=== PATIENT | female | born 1940 | race Caucasian/White ===

== ENCOUNTER 2021-03-18 11:58 | Emergency (ER) | payer MEDICARE, MEDICAID, SELFPAY ==
[2021-03-18] VITALS (7 sets, daily range): BP systolic 116–151; BP diastolic 59–74; PULSE 89–95; RESP 18; TEMP 36.9; O2SAT 93–97; BMI 32.5
--- NOTE | 2021-03-18 12:11 | XRR_ITS ---
PROCEDURE INFORMATION: Exam: XR Chest Exam date and time: 03/18/2021 12:11 PM Age: 81 years old Clinical indication: Other: N/v TECHNIQUE: Imaging protocol: XR of the chest. Views: 1 view. COMPARISON: No relevant prior studies available. FINDINGS: Lungs: Unremarkable. No consolidation. Pleural spaces: Unremarkable. No pleural effusion. No pneumothorax. Heart/Mediastinum: Unremarkable. No cardiomegaly. Bones/joints: Unremarkable. XR/XR chest 1V portable [id number] IMPRESSION: No acute findings.
--- NOTE | 2021-03-18 12:15 | ECG_ITS ---
[facility] Test Date: 2021-03-18 Pat Name: Danelle Elaine Department: Room: Gender: Female Organizational Effectiveness Consultant: : 1940 Requested By: Gilma Cortes I Order Number: [id number] Leopoldo MD: Vivek Patiño M.D. Measurements Intervals [place] Rate: 92 P: 29 [place]: 182 QRS: -33 QRSD: 102 T: 100 QT: 399 QTc: 496 Interpretive Statements SINUS RHYTHM LEFT AXIS DEVIATION [QRS AXIS < -30] INCOMPLETE RIGHT BUNDLE BRANCH BLOCK [90+ ms QRS DURATION, TERMINAL R IN V1/V2, 40+ ms S IN I/aVL/V4/V5/V6] MINIMAL VOLTAGE CRITERIA FOR LVH, CONSIDER NORMAL VARIANT [MEETS CRITERIA IN ONE OF: R(aVL), S(V1), R(V5), R(V5/V6)+S(V1)] POSSIBLE ANTERIOR MYOCARDIAL INFARCTION , PROBABLY OLD [30 ms Q WAVE IN V3/V4, OR R < 0.2 mV IN V4] No previous ECG available for comparison Electronically Signed On 03-18-2021 19:46:50 CDT by Vivek Patiño M.D. [id number]
--- NOTE | 2021-03-18 12:16 | ED_ITS ---
HPI - Nausea/Vomiting/Diarrhea General: Chief complaint: Nausea/Vomiting/Diarrhea Stated complaint: N/V/D X4 DAYS Time Seen by Provider: 03/18/21 11:58 Source: patient, EMS and RN notes reviewed Mode of arrival: EMS Limitations: no limitations History of Present Illness: HPI Narrative: Patient is an 81-year-old female with a history of diabetes who presents to the emergency department with nausea and vomiting that has been going on for about 4 days. There is also associated diarrhea. She feels weak. Yesterday she noticed that her stools were turning black and it was worse, yesterday and this morning it was dark-colored. No abdominal pain. No chest pain or SOB. She has received the Moderna Vaccine and received 2 doses about 6 months ago. MD elicited complaint: nausea, vomiting and diarrhea Onset (ago): day(s) (4) Description of diarrhea: watery Associated nausea: Yes Associated abdominal pain: No Exacerbating factors: none Relieving factors: none Associated symtoms: Reports fatigue, nausea and weakness; Denies altered mental status, anxiety, bloating, change in vision, chest pain, cough, diaphoresis, decreased urine output, dizziness, dysuria, epistaxis, fecal incontinence, fevers/chills, headache(s), anorexia, malaise, myalgias, numbness, palpitations, rash, short of breath, syncope, tenesmus or tinnitus Review of Systems General: Reports: 10 or more systems reviewed and unremarkable except in HPI and below Const: Reports: fatigue; Denies: malaise or diaphoresis Eyes: Denies: change in vision ENMT: Denies: tinnitus or epistaxis Card: Denies: chest pain, palpitations or syncope GI: Reports: nausea; Denies: bloating or fecal incontinence : Denies: dysuria Neuro: Denies: headache(s) or dizziness Psych: Denies: anxiety Physical Exam Const: COMMON NORMALS: no acute distress, average body habitus, patient oriented x3, no limitations, healthy appearing, alert and well nourished EXAM LIMITATIONS: no altered mental status HENMT: COMMON NORMALS: normocephalic, atraumatic and moist oral mucous membranes HEAD & SCALP: normocephalic and atraumatic Neck/C-Spine: COMMON NORMALS: no meningeal signs and no JVD Resp: COMMON NORMALS: normal respiratory effort, No retractions, No use of accessory muscles, clear to auscultation bilaterally and percussion normal AUSCULTATION: clear to auscultation bilaterally PERCUSSION: percussion normal Cardio: COMMON NORMALS: no JVD, regular rate, regular rhythm, S1 normal heart sound present, S2 normal heart sound present, No gallops present (Cardio), No clicks present (Cardio), No murmurs present (Cardio), No rub (Cardio) and Peripheral pulses 2+ throughout RATE: regular rate RHYTHM: regular rhythm HEART SOUNDS: S1 normal heart sound present and S2 normal heart sound present PERIPHERAL PULSES: Peripheral pulses 2+ throughout GI: COMMON NORMALS: Normal to inspection, nondistended, normoactive bowel sounds present, Soft to palpation, non-tender, No hepatosplenomegaly present, no masses and no bruits PALPATION: Yes Soft to palpation and Yes No hepatosplenomegaly present Extremity: COMMON NORMALS: normal to inspection, full ROM, capillary refill normal, no calf tenderness and no pedal edema Neuro: COMMON NORMALS: patient oriented x3 SENSORIUM/ORIENTATION: Yes alert MENINGEAL SIGNS: Yes no meningeal signs Skin: COMMON NORMALS: no rashes or lesions noted, no wounds, turgor normal, no jaundice, no petechiae and no mottling GENERAL SKIN EXAM: no rashes or lesions noted and turgor normal Course Reevaluation(s): Reevaluation #1: Discussed her lab and imaging findings with her. She likely has a UTI, she was given a dose of intravenous ceftriaxone in the emergency department for this. She is also discharged with a prescription for Augmentin. She is advised to drink plenty of fluids to keep well-hydrated. She voiced understanding and is in agreement with the plan. Time: 15:45 Vital Signs: Vital signs: Vital Signs Temperature 98.4 F 03/18/21 12:00 Pulse Rate 92 03/18/21 16:38 Respiratory Rate 18 03/18/21 16:38 Blood Pressure 143/74 03/18/21 16:38 Pulse Oximetry 97 03/18/21 16:38 MDM - Nausea/Vomiting/Diarrhea MDM Narrative: Medical decision making narrative: 81-year-old female patient who presented to the emergency department with complaints of nausea vomiting and diarrhea. Evaluation in the emergency department is consistent with a urinary tract infection. She is discharged home with a prescription for Augmentin. Medical Records: Attestation: I reviewed the patient's medical records. Lab Data: Attestation: I reviewed the patient's lab results. Labs: Lab Results 03/18/21 03/18/21 03/18/21 Range/Units 12:30 12:30 12:30 WBC 6.1 (4.0-10.0) 10^3/ uL RBC 3.92 L (4.1-5.3) 10^6/u L Hgb 11.3 L (11.5-15.3) g/dL Hct 35.7 L (37.0-47.0) % MCV 91.1 (81-99) fl MCH 28.8 (28.0-34.0) pg MCHC 31.7 (30.0-36.0) g/dL RDW 12.9 (12.1-15.1) % Plt Count 337 (130-400) 10^3/c mm MPV 10.0 (7.4-10.4) fL Neut % (Auto) 66.1 % Lymph % (Auto) 19.3 % [place] % (Auto) 11.8 % Eos % (Auto) 1.8 % Baso % (Auto) 0.7 % Neut # (Auto) 4.03 (1.8-7.7) 10^3/u L Lymph # (Auto) 1.2 (0.8-4.8) 10^3/u L [place] # (Auto) 0.7 (0.2-0.9) 10^3/u L Eos # (Auto) 0.1 (0.0-0.8) 10^3/u L Baso # (Auto) 0.0 (0.0-0.1) 10^3/u L Nucleated RBC % (a uto) 0 % Nucleated RBCs # 0.0 /100WBC Sodium 138 (136-145) mmol/L Potassium 4.2 (3.5-5.1) mmol/L Chloride 105 (98-107) mmol/L Carbon Dioxide 23 (22-29) mmol/L Anion Gap 14.2 (5-19) BUN 29 H (8-23) mg/dL Creatinine 1.2 H (0.5-0.9) mg/dL GFR Calculation Not Reportable Glucose 221 H (65-115) mg/dL Calculated Osmolal ity 299 H (285-295) mOsm/k g Calcium 8.3 L (8.5-10.5) mg/dL Total Bilirubin 0.2 (0.15-1.2) mg/dL AST 17 (0-32) U/L ALT 14 (0-33) U/L Alkaline Phosphata se 30 L (35-105) IU/L Troponin T Gen 5 n g/L 21 H (0-10) ng/L C-Reactive Protein 21.2 H (0.0-4.9) mg/L Total Protein 6.2 L (6.6-8.7) g/dL Albumin 3.8 (3.5-5.2) g/dL Globulin 2.4 (1.3-4.6) g/dL Lipase 11 L (13-60) U/L Urine Color (Yellow) Urine Appearance (CLEAR) Urine pH (5-7) Ur Specific Gravit y (1.005-1.030) Urine Protein (Negative) Urine Glucose (UA) (Normal) Urine Ketones (Negative) Urine Blood (Negative) Urine Nitrate (Negative) Urine Bilirubin (Negative) Urine Urobilinogen (Negative) mg/dL Ur Leukocyte Patsy ase (Negative) Urine RBC (0-2) /hpf Urine WBC (0-5) /hpf Ur Squamous Epith Cells (0-5) /hpf Amorphous Sediment Urine Bacteria (NONE) /hpf Urine Mucus /hpf 03/18/ Range/Units 14:01 WBC (4.0-10.0) 10^3/ uL RBC (4.1-5.3) 10^6/u L Hgb (11.5-15.3) g/dL Hct (37.0-47.0) % MCV (81-99) fl MCH (28.0-34.0) pg MCHC (30.0-36.0) g/dL RDW (12.1-15.1) % Plt Count (130-400) 10^3/c mm MPV (7.4-10.4) fL Neut % (Auto) % Lymph % (Auto) % [place] % (Auto) % Eos % (Auto) % Baso % (Auto) % Neut # (Auto) (1.8-7.7) 10^3/u L Lymph # (Auto) (0.8-4.8) 10^3/u L [place] # (Auto) (0.2-0.9) 10^3/u L Eos # (Auto) (0.0-0.8) 10^3/u L Baso # (Auto) (0.0-0.1) 10^3/u L Nucleated RBC % (a uto) % Nucleated RBCs # /100WBC Sodium (136-145) mmol/L Potassium (3.5-5.1) mmol/L Chloride (98-107) mmol/L Carbon Dioxide (22-29) mmol/L Anion Gap (5-19) BUN (8-23) mg/dL Creatinine (0.5-0.9) mg/dL GFR Calculation Glucose (65-115) mg/dL Calculated Osmolal ity (285-295) mOsm/k g Calcium (8.5-10.5) mg/dL Total Bilirubin (0.15-1.2) mg/dL AST (0-32) U/L ALT (0-33) U/L Alkaline Phosphata se (35-105) IU/L Troponin T Gen 5 n g/L (0-10) ng/L C-Reactive Protein (0.0-4.9) mg/L Total Protein (6.6-8.7) g/dL Albumin (3.5-5.2) g/dL Globulin (1.3-4.6) g/dL Lipase (13-60) U/L Urine Color Dark yellow (Yellow) Urine Appearance Cloudy (CLEAR) Urine pH 5 (5-7) Ur Specific Gravit y 1.030 (1.005-1.030) Urine Protein 1+ H (Negative) Urine Glucose (UA) Trace H (Normal) Urine Ketones 1+ H (Negative) Urine Blood Neg (Negative) Urine Nitrate Negative (Negative) Urine Bilirubin 1+ H (Negative) Urine Urobilinogen 1 H (Negative) mg/dL Ur Leukocyte Patsy ase 2+ H (Negative) Urine RBC None (0-2) /hpf Urine WBC 15-25 H (0-5) /hpf Ur Squamous Epith Cells 15-25 H (0-5) /hpf Amorphous Sediment Not Reportable Urine Bacteria 1+ H (NONE) /hpf Urine Mucus 1+ /hpf Imaging Data^: CXR: Attestation: I personally reviewed and interpreted this imaging study as follows: Radiologist's impression: Ady [address] [id number] ReportSigned Patient: Lina Elaine #: [id number]: 1940Acct#:[id number]/Sex: 81 / FADM Date: 03/18/21Loc: ERRoom/Bed:Attending Dr: Ordering Provider/Ordering MD: Gilma Cortes MD, [facility] [place] Date of Service: 03/18/21 Procedure(s): XR chest 1V portable [id number] Accession Number(s): [id number] Report Number: [id number] PROCEDURE INFORMATION: Exam: XR Chest Exam date and time: 03/18/2021 12:11 PM Age: 81 years old Clinical indication: Other: N/v TECHNIQUE: Imaging protocol: XR of the chest. Views: 1 view. COMPARISON: No relevant prior studies available. FINDINGS: Lungs: Unremarkable. No consolidation. Pleural spaces: Unremarkable. No pleural effusion. No pneumothorax. Heart/Mediastinum: Unremarkable. No cardiomegaly. Bones/joints: Unremarkable. XR/XR chest 1V portable [id number] IMPRESSION: No acute findings. Dictated By:Talha Mehta By:Talha Mehta Date/Time:03/18/21 1356DD/ 1355 EKG Data^: EKG 1: Attestation: I personally reviewed and interpreted this EKG as follows: EKG interpretation date: 03/18/21 EKG interpretation time: 12:26 Prior EKG tracings: not available for review Interpretation: Sinus rhythm. Heart rate 92 bpm. Incomplete right bundle branch block. No ST changes. Discharge Plan Discharge Patient Disposition: Home Clinical Impression: Gastroenteritis UTI (urinary tract infection) Qualifiers: Urinary tract infection type: acute cystitis Hematuria presence: without hematuria Qualified Code(s): N30.00 - Acute cystitis without hematuria Condition: Stable Prescriptions: New Augmentin 500-125 mg tablet 1 tab PO BID Qty: 10 RF: 0 Continued atorvastatin 40 mg tablet 40 mg PO DAILY RF: 0 Lantus U-100 Insulin 100 unit/mL solution 75 unit SUBCUT BID RF: 0 lisinopril 20 mg tablet 20 mg PO DAILY RF: 0 glimepiride 4 mg tablet 4 mg PO DAILY RF: 0 gabapentin 100 mg capsule 100 mg PO BID RF: 0 fenofibrate nanocrystallized 145 mg tablet 14 mg PO DAILY RF: 0 Trulicity 0.75 mg/0.5 mL pen injector 0.75 mg SUBCUT Q7D RF: 0 Discharge Orders: Discharge ED (Routine); Ordered 03/18/21 Ordered By: Gilma Cortes Referrals: Toan Espinoza DO [Primary Care Provider] - 1-3 days Discharge Diet: Usual diet Discharge Activity: Increase activity as tolerated Patient Instructions: Urinary Tract Infection in Women (ED), Gastroenteritis (ED) Activity Restrictions/Additional Instructions: Return for any new or worsening symptoms. Follow-up with your primary care provider within 3 days. Take antibiotic as prescribed. Drink plenty of fluids to keep well-hydrated. Coding Level of Care Code ED Utility Aide for Chg Fwd Exam Comprehensive
[2021-03-18 12:59] LABS: Basophils % 0.7 %; Eosinophils # 0.1 10^3/uL (0.0-0.8); Eosinophils % 1.8 %; Hematocrit 35.7 % (37.0-47.0); Hemoglobin 11.3 g/dL (11.5-15.3); Lymphocytes # 1.2 10^3/uL (0.8-4.8); Lymphocytes % 19.3 %; Mean Corpuscular HGB Conc 31.7 g/dL (30.0-36.0); Mean Corpuscular Hemoglobin 28.8 pg (28.0-34.0); Mean Corpuscular Volume 91.1 fl (81-99); Monocytes # 0.7 10^3/uL (0.2-0.9); Monocytes % 11.8 %; Neutrophils # 4.03 10^3/uL (1.8-7.7); Neutrophils % 66.1 %; Nucleated Red Blood Cells % 0 %; Platelet Count 337 10^3/cmm (130-400); Red Blood Count 3.92 10^6/uL (4.1-5.3); Red Cell Distribution Width 12.9 % (12.1-15.1); White Blood Count 6.1 10^3/uL (4.0-10.0)
[2021-03-18 13:17] LABS: Troponin T (5th) Once 21 ng/L (0-10)
[2021-03-18 13:19] LABS: Alanine Aminotransferase 14 U/L (0-33); Albumin Level 3.8 g/dL (3.5-5.2); Alkaline Phosphatase 30 IU/L (35-105); Anion Gap 14.2 (5-19); Aspartate Amino Transferase 17 U/L (0-32); Blood Urea Nitrogen 29 mg/dL (8-23); C Reactive Protein 21.2 mg/L (0.0-4.9); Calcium 8.3 mg/dL (8.5-10.5); Carbon Dioxide 23 mmol/L (22-29); Chloride 105 mmol/L (98-107); Globulin 2.4 g/dL (1.3-4.6); Glucose 221 mg/dL (65-115); Lipase 11 U/L (13-60); Osmolality Calculated 299 mOsm/kg (285-295); Potassium 4.2 mmol/L (3.5-5.1); Sodium 138 mmol/L (136-145); Total Bilirubin 0.2 mg/dL (0.15-1.2); Total Protein 6.2 g/dL (6.6-8.7)
[2021-03-18] MEDS: ondansetron 2 mg/ML SDV 2 mL 4 MG IVP (13:40)
[2021-03-18 14:55] LABS: Urine Appearance Cloudy (CLEAR); Urine Color Dark Yellow (Yellow)
[2021-03-18 14:56] LABS: Add Urine Microscopic? YES; Bilirubin Urine 1+ (Negative); Blood Urine Neg (Negative); Glucose Urine UA Trace (Normal); Ketones Urine 1+ (Negative); Leukocyte Esterase Urine 2+ (Negative); Nitrate Urine Negative (Negative); Protein Urine 1+ (Negative); Urobilinogen Urine 1 mg/dL (Negative); pH Urine 5 (5-7)
[2021-03-18 14:58] LABS: Add Urine Culture? No; Bacteria Urine 1+ /hpf; Mucus Urine 1+ /hpf; Squamous Epithelial Cell Urine 15-25 /hpf (0-5); WBC Urine 15-25 /hpf (0-5)
[2021-03-18] MEDS: cefTRIAXone 1,000 MG in sodium chloride 0.9% (plus) 50 ML 100 MG IV (15:31)
[2021-03-18] MEDS: sodium chloride 0.9% 1,000 ML 999 ML IV (15:32)
== END 2021-03-18 16:38 | disposition home or self-care (01) ==
PROVIDERS: Emergency Provider Family Medicine; PCP Electrodiagnostic Medicine
DX: K52.9 Noninfective gastroenteritis and colitis, unspecified (principal); N30.00 Acute cystitis without hematuria
CPT/HCPCS: 71045; 80053; 81001; 83690; 84484; 85025; 86140; 93005; 96365; 96375; 99284; J0696; J2405; J7030

== ENCOUNTER 2022-09-10 11:04 | Emergency (ER) | payer MEDICARE, MEDICAID, SELFPAY ==
[2022-09-10 11:13] VITALS: BP 116/93; PULSE 74; RESP 19; TEMP 35.1; O2SAT 98
--- NOTE | 2022-09-10 11:19 | ECG_ITS ---
[facility] Test Date: 2022-09-10 Pat Name: Danelle Elaine Department: Room: Gender: Female Patient Care Director: : 1940 Requested By: Heather Meyer Order Number: [id number] Leopoldo MD: Vivek Patiño M.D. Measurements Intervals [place] Rate: 65 P: 28 NC: 189 QRS: -15 QRSD: 93 T: 32 QT: 412 QTc: 431 Interpretive Statements SINUS RHYTHM NONSPECIFIC T-WAVE ABNORMALITY Compared to ECG 03/18/2021 12:26:31 T-wave abnormality now present Left-axis deviation no longer present Incomplete right bundle-branch block no longer present Myocardial infarct finding no longer present Electronically Signed On 09-10-2022 17:35:03 ELEVATOR EXAMINER AND ADJUSTER by Vivek Patiño M.D. [id number]
--- NOTE | 2022-09-10 11:21 | ED_ITS ---
HPI - Altered Mental Status General: Chief Complaint: Altered Mental Status Stated Complaint: LOW BLOOD SUGAR Time Seen by Provider: 09/10/22 11:08 History of Present Illness: This 32-year-old female with a history of diabetes was brought in by EMS for evaluation of altered mental status. Patient has an appointment to see her primary care provider this morning and when sister went over to pick her up, she discovered that patient was out of it . She could hardly recognize her sister and was disoriented. EMS was called. Patient's initial blood sugar was 45. After receiving 150 mL of D10, blood sugar improved to 131. She was found to be cold with a temporal temperature of 95.1. Patient reports feeling cold. At the time of my initial evaluation, patient could not state who the president was, knew that this is August and guessed that she was in the hospital. Sister notes that the last time patient was in her usual state of health was yesterday. They also reported that patient has had about 3 episodes of hypoglycemia over the last 1 week. Patient is on Lantus, Trulicity and glimepiride for her diabetes. Associated symptoms: Deny depression Review of Systems Const: Reports: chills and body aches (Generalized and chronic) Eyes: Denies: change in vision or eye discharge ENMT: Denies: throat pain, dental pain or nasal discharge Card: Denies: chest pain or lightheadedness : Denies: dysuria Musc: Denies: neck pain or back pain Neuro: Denies: headache(s) or weakness in extremities Psych: Denies: depression Gurvinder/Lymph: Denies: easy bruising All/Imm: Denies: urticaria, tongue swelling or facial swelling Physical Exam Narrative: Awake but appears weak. Const: OTHER: Cold to touch. Chest: COMMONS NORMALS: normal inspection of the chest Resp: COMMON NORMALS: normal respiratory effort, No retractions, No use of accessory muscles, clear to auscultation bilaterally and percussion normal AUSCULTATION: clear to auscultation bilaterally PERCUSSION: percussion normal Cardio: COMMON NORMALS: regular rate, regular rhythm, S1 normal heart sound present, S2 normal heart sound present and No murmurs present (Cardio) RATE: regular rate RHYTHM: regular rhythm HEART SOUNDS: S1 normal heart sound present and S2 normal heart sound present GI: COMMON NORMALS: Normal to inspection, nondistended, normoactive bowel sounds present, Soft to palpation, non-tender and No hepatosplenomegaly present PALPATION: Yes Soft to palpation and Yes No hepatosplenomegaly present Extremity: OTHER: No pitting pedal edema. Neuro: OTHER: Alert. No focal neurologic deficit. Psych: COMMON NORMALS: cooperative and normal affect Course Vital Signs: Vital signs: Vital Signs Temperature 95.1 F L 09/10/22 11:13 Pulse Rate 74 09/10/22 11:13 Respiratory Rate 19 H 09/10/22 11:13 Blood Pressure 130/71 09/10/22 13:15 Pulse Oximetry 99 09/10/22 13:15 Oxygen Delivery Me thod 09/10/22 12:45 MDM - Altered Mental Status Medical Decision Making Medical decision making: History as above. During her stay in the ER, patient was back to her baseline with a stable blood sugar. On further questioning, patient's sister, who found patient at home, stated that patient was just lying in bed and was not covered. I believe that she got hypothermic because she did not cover herself which led to hypothermia. The hypoglycemia is due to the fact that she uses 3 medications (Lantus, Trulicity and glimepiride) which have the potential of dropping her blood sugar. She was advised not to skip meals or drastically reduce the amount of food she eats while taking those 3 medications. Most importantly, she should measure her blood pressure at least twice a day and keep a log of the readings. Her primary care physician will review these readings and adjust her medications acco rdingly. Patient verbalized understanding and agrees with the plan. At this time, there is no indication to admit her. She was discharged home. Reasons to return were discussed. Lab Data 09/10/22 11:50 09/10/22 11:50 Radiology Impressions Chest X-Ray 09/10/22 11:29 IMPRESSION: 1. No acute process identified. 2. Widening of the mediastinum that may be due to some rotation of the chest and portable technique. Head CT 09/10/22 11:29 IMPRESSION: 1. No evidence of intracranial hemorrhage or mass effect. 2. Moderate small vessel changes. Moderate parenchymal volume loss. 3. No acute intracranial findings. Laboratory Results WBC 5.0 10^3/uL (4.0-10.0) 09/10/22 11:50 RBC 4.36 10^6/uL (4.1-5.3) 09/10/22 11:50 Hgb 12.1 g/dL (11.5-15.3) 09/10/22 11:50 Hct 38.3 % (37.0-47.0) 09/10/22 11:50 MCV 87.8 fl (81-99) 09/10/22 11:50 MCH 27.8 pg (28.0-34.0) L 09/10/22 11:50 MCHC 31.6 g/dL (30.0-36.0) 09/10/22 11:50 RDW 12.4 % (12.1-15.1) 09/10/22 11:50 Plt Count 376 10^3/cmm (130-400) 09/10/22 11:50 MPV 9.9 fL (7.4-10.4) 09/10/22 11:50 Neut % (Auto) 65.8 % 09/10/22 11:50 Lymph % (Auto) 25.1 % 09/10/22 11:50 [place] % (Auto) 7.5 % 09/10/22 11:50 Eos % (Auto) 1.0 % 09/10/22 11:50 Baso % (Auto) 0.4 % 09/10/22 11:50 Neut # (Auto) 3.26 10^3/uL (1.8-7.7) 09/10/22 11:50 Lymph # (Auto) 1.2 10^3/uL (0.8-4.8) 09/10/22 11:50 [place] # (Auto) 0.4 10^3/uL (0.2-0.9) 09/10/22 11:50 Eos # (Auto) 0.1 10^3/uL (0.0-0.8) 09/10/22 11:50 Baso # (Auto) 0.0 10^3/uL (0.0-0.1) 09/10/22 11:50 Nucleated RBC % (auto) 0 % 09/10/22 11:50 Nucleated RBCs # 0.0 /100WBC 09/10/22 11:50 Sodium 137 mmol/L (136-145) 09/10/22 11:50 Potassium 4.6 mmol/L (3.5-5.1) 09/10/22 11:50 Chloride 101 mmol/L (98-107) 09/10/22 11:50 Carbon Dioxide 23 mmol/L (22-29) 09/10/22 11:50 Anion Gap 17.6 (5-19) 09/10/22 11:50 BUN 25 mg/dL (8-23) H 09/10/22 11:50 Creatinine 1.0 mg/dL (0.5-0.9) H 09/10/22 11:50 GFR Calculation Not Reportable 09/10/22 11:50 Glucose 179 mg/dL (65-115) H 09/10/22 11:50 POC Glucose 122 mg/dL (70-110) H 09/10/22 14:58 Calculated Osmolality 293 mOsm/kg (285-295) 09/10/22 11:50 Calcium 9.1 mg/dL (8.5-10.5) 09/10/22 11:50 Total Bilirubin 0.2 mg/dL (0.15-1.2) 09/10/22 11:50 AST 25 U/L (0-32) 09/10/22 11:50 ALT 17 U/L (0-33) 09/10/22 11:50 Alkaline Phosphatase 35 U/L (35-105) 09/10/22 11:50 Total Protein 7.2 g/dL (6.6-8.7) 09/10/22 11:50 Albumin 3.8 g/dL (3.5-5.2) 09/10/22 11:50 Globulin 3.4 g/dL (1.3-4.6) 09/10/22 11:50 Lipase 18 U/L (13-60) 09/10/22 11:50 Urine Color Yellow (Yellow) 09/10/22 13:26 Urine Appearance Clear (CLEAR) 09/10/22 13:26 Urine pH 6 (5-7) 09/10/22 13:26 Ur Specific [place] 1.020 (1.005-1.030) 09/10/22 13:26 Urine Protein Neg (Negative) 09/10/22 13:26 Urine Glucose (UA) Norm (Normal) 09/10/22 13:26 Urine Ketones Negative (Negative) 09/10/22 13:26 Urine Blood Neg (Negative) 09/10/22 13:26 Urine Nitrate Negative (Negative) 09/10/22 13:26 Urine Bilirubin Neg (Negative) 09/10/22 13:26 Urine Urobilinogen Norm mg/dL (Negative) 09/10/22 13:26 Ur Leukocyte Esterase Negative (Negative) 09/10/22 13:26 Discharge Plan Discharge Patient Disposition: Home Clinical Impression: Hypoglycemia, Hypothermia Condition: Stable Prescriptions: No Action atorvastatin 40 mg tablet 40 mg PO DAILY insulin glargine [Lantus U-100 Insulin] 100 unit/mL solution 72 unit SUBCUT BID lisinopril 20 mg tablet 20 mg PO DAILY glimepiride 4 mg tablet 4 mg PO DAILY fenofibrate nanocrystallized 145 mg tablet 145 mg PO DAILY Trulicity 0.75 mg/0.5 mL pen injector 0.75 mg SUBCUT Q7D Rx Instructions: On Friday Discharge Orders: Discharge ED (Routine); Ordered 09/10/22 Ordered By: Heather Patel Referrals: Toan Espinoza DO [Primary Care Provider] - Discharge Diet: Usual diet Discharge Activity: Resume usual activity Patient Instructions: Opioid Safety, Pain Management Activity Restrictions/Additional Instructions: * Check your blood sugar at least twice a day and keep a log of the readings. Discussed these readings with your primary care physician who will adjust her medications accordingly. * Do not skip meals especially after taking your blood sugar medications. * Be sure to carry sugar cubes or candy with you. Take them if you develop any signs of low blood sugar. * Follow-up with your primary care physician within a week for reevaluation. * Return with new or worsening symptoms. Coding Level of Care Code ED Slate Mixer for Aliyah Peter
--- NOTE | 2022-09-10 11:29 | XR_ITS ---
WS: [id number] Exam: XR chest 1V portable [id number] Date/Time of Exam: 09/10/2022 11:33 AM Reason For Exam: hypoglycemia, altered mental status Comparison 03/18/2021. The lungs are fully expanded. No consolidating infiltrates. Plaque atelectasis in the left base. Hear t size top limits normal. There is accentuation of the mediastinum on the right that may be due to ro tation and portable technique. Bony structures are intact. XR/XR chest 1V portable [id number] IMPRESSION: 1. No acute process identified. 2. Widening of the mediastinum that may be due to some rotation of the chest an d portable technique.
--- NOTE | 2022-09-10 11:29 | CT_ITS ---
WS: [id number] CT HEAD TECHNIQUE: Noncontrast CT of the head obtained from the skullbase to the vertex. CLINICAL INFORMATION: Altered mental status, hypoglycemia COMPARISON: None. DLP: 1026.[address] scans at [facility] use at least one of these dose optimization techniques: automated e xposure control; mA and/or kV adjustment per patient size (includes targeted exams where dose is matc hed to clinical indication); or iterative reconstruction. FINDINGS: Some images degraded by patient motion. No evidence of intracranial hemorrhage or mass effect. Ventricular system and basal cisterns are beltre nt. Moderate small vessel changes with moderate parenchymal volume loss. 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 Mild encephalomalacia RIGHT anterior temporal lobe. Vascular calcification. No extra -axial fluid collections. No evidence of mass or mass effect. Paranasal sinuses and mastoid air cells are well aerated. .Normal visualized soft tissues. CT/CT head wo con* [id number] IMPRESSION: 1. No evidence of intracranial hemorrhage or mass effect. 2. Moderate small vessel changes. Moderate parenchymal volume loss. 3. No acute intracranial findings.
[2022-09-10] MEDS: sodium chloride 0.9% 1,000 ML 999 ML IV (11:51)
[2022-09-10 11:58] LABS: Basophils % 0.4 %; Eosinophils # 0.1 10^3/uL (0.0-0.8); Hematocrit 38.3 % (37.0-47.0); Hemoglobin 12.1 g/dL (11.5-15.3); Lymphocytes # 1.2 10^3/uL (0.8-4.8); Lymphocytes % 25.1 %; Mean Corpuscular HGB Conc 31.6 g/dL (30.0-36.0); Mean Corpuscular Hemoglobin 27.8 pg (28.0-34.0); Mean Corpuscular Volume 87.8 fl (81-99); Mean Platelet Volume 9.9 fL (7.4-10.4); Monocytes # 0.4 10^3/uL (0.2-0.9); Monocytes % 7.5 %; Neutrophils # 3.26 10^3/uL (1.8-7.7); Neutrophils % 65.8 %; Nucleated Red Blood Cells % 0 %; Platelet Count 376 10^3/cmm (130-400); Red Blood Count 4.36 10^6/uL (4.1-5.3); Red Cell Distribution Width 12.4 % (12.1-15.1)
[2022-09-10 12:05] VITALS: O2SAT 98
[2022-09-10 12:15] VITALS: BP 114/87
[2022-09-10 12:20] LABS: Albumin Level 3.8 g/dL (3.5-5.2); Alkaline Phosphatase 35 U/L (35-105); Blood Urea Nitrogen 25 mg/dL (8-23); Calcium 9.1 mg/dL (8.5-10.5); Carbon Dioxide 23 mmol/L (22-29); Chloride 101 mmol/L (98-107); Globulin 3.4 g/dL (1.3-4.6); Glucose 179 mg/dL (65-115); Lipase 18 U/L (13-60); Osmolality Calculated 293 mOsm/kg (285-295); Sodium 137 mmol/L (136-145); Total Bilirubin 0.2 mg/dL (0.15-1.2); Total Protein 7.2 g/dL (6.6-8.7)
[2022-09-10 12:21] LABS: Alanine Aminotransferase 17 U/L (0-33); Anion Gap 17.6 (5-19); Aspartate Amino Transferase 25 U/L (0-32); Potassium 4.6 mmol/L (3.5-5.1)
[2022-09-10 12:45] VITALS: BP 133/52; O2SAT 96
[2022-09-10 13:00] VITALS: BP 121/57; O2SAT 100
[2022-09-10 13:15] VITALS: BP 130/71; O2SAT 99
[2022-09-10 13:40] LABS: Add Urine Microscopic? NO; Charge for UA Resulting for Rev
[2022-09-10 14:07] LABS: Bilirubin Urine Neg (Negative); Blood Urine Neg (Negative); Glucose Urine UA Norm (Normal); Ketones Urine Negative (Negative); Leukocyte Esterase Urine Negative (Negative); Nitrate Urine Negative (Negative); Protein Urine Neg (Negative); Urine Appearance Clear (CLEAR); Urine Color Yellow (Yellow); Urobilinogen Urine Norm (Negative); pH Urine 6 (5-7)
[2022-09-10 15:04] LABS: Glucose Point of Care 122 mg/dL (70-110)
== END 2022-09-10 16:40 | disposition home or self-care (01) ==
PROVIDERS: Emergency Provider Family Medicine; PCP Electrodiagnostic Medicine
DX: T68.XXXA Hypothermia, initial encounter (principal); X31.XXXA Exposure to excessive natural cold, initial encounter; E11.649 Type 2 diabetes mellitus with hypoglycemia without coma; Z79.85 Long-term (current) use of injectable non-insulin antidiabetic drugs; Z79.84 Long term (current) use of oral hypoglycemic drugs; Z79.4 Long term (current) use of insulin
CPT/HCPCS: 36416; 70450; 71045; 80053; 81003; 82962; 83690; 85025; 93005; 96360; 99285; J7030

== ENCOUNTER 2022-12-12 14:26 | Emergency (ER) | payer MEDICARE, MEDICAID, SELFPAY ==
[2022-12-12 14:35] VITALS: BP 164/72; PULSE 83; RESP 18; TEMP 36.7; O2SAT 95
--- NOTE | 2022-12-12 14:42 | W.ED.FALL ---
HPI - Fall General: Chief Complaint: Fall Stated Complaint: fall, rib pain Time Seen by Provider: 12/12/22 14:36 History of Present Illness: Ms. Elaine is an 82-year-old lady with history of frequent falls presenting to the emergency department for follow-up with continued pain. She reports 2 nights ago going to the bathroom and losing her balance falling primarily on her back left side. She denies head strike or loss of consciousness. She has had left-sided pain and left posterior hip pain since that time. Course has worsened. Intensity is moderate though at times becomes severe. No other specific changes in health, exacerbating, or alleviating factors identified. Onset (ago): day(s) Fall from: standing Loss of consciousness: None Symptoms prior to fall: none Severity: moderate Review of Systems General: Reports: 10 or more systems reviewed and unremarkable except in HPI and below Physical Exam Const: COMMON NORMALS: alert GENERAL APPEARANCE: cooperative and well developed HENMT: COMMON NORMALS: normocephalic and atraumatic HEAD & SCALP: normocephalic and atraumatic Eye: COMMON NORMALS: conjunctivae normal CONJUNCTIVA: Yes conjunctivae normal SCLERA: sclerae normal Neck/C-Spine: COMMON NORMALS: supple GENERAL: Yes trachea midline Resp: COMMON NORMALS: normal respiratory effort EFFORT & INSPECTION: Yes able to speak in complete sentences Cardio: COMMON NORMALS: regular rate and regular rhythm RATE: regular rate RHYTHM: regular rhythm GI: COMMON NORMALS: Soft to palpation PALPATION: Yes Soft to palpation and No Tenderness to palpation present (GI) Extremity: GENERAL: Yes normal exam except as noted and No edema Neuro: COMMON NORMALS: moves all extremities SENSORIUM/ORIENTATION: Yes alert and No Orientation impaired Psych: COMMON NORMALS: mental status grossly normal and Normal thought process present THOUGHT PROCESS: Normal thought process present Course Vital Signs: Vital signs: Vital Signs Temperature 98.1 F 12/12/22 14:35 Pulse Rate 96 12/12/22 16:43 Respiratory Rate 18 12/12/22 14:35 Blood Pressure 179/85 12/12/22 16:43 Pulse Oximetry 96 12/12/22 16:43 Oxygen Delivery Me thod Room Air 12/12/22 16:43 MDM - Fall Medical Decision Making 82-year-old lady presenting due to continued pain after fall. She does have left hip and left rib area pain on palpation. Head to toe exam performed. She is nontoxic. Labs with no leukocytosis, near baseline normocytic anemia, normal platelet count. Metabolic panel similar to prior. No UTI given absence of symptoms and squamous epithelial contamination. CT demonstrates no acute findings, incidental finding discussed as appropriate. Patient feels improved with Toradol and able to ambulate. Most likely cause of symptoms is soft tissue injury related to fall. The results of ED evaluation were discussed with the patient including prescriptions and/or symptomatic cares (if applicable) including appropriate and responsible use, followup plan, and return precautions. The patient verbalized understanding and felt safe for discharge. Medical Records I reviewed the patient's medical records. Lab Data I reviewed the patient's lab results. 12/12/22 15:04 12/12/22 15:04 Radiology Impressions Chest/Abdomen/Pelvis CT 12/12/22 14:52 IMPRESSION: No acute traumatic intrathoracic findings. IMPRESSION: No acute traumatic intra-abdominal findings. COMMENTS: Consistent with the [employer]'s Incidental Findings Committee white paper (J Am Paras Radiol 2018): Any incidental renal lesion less than 1 cm or classified as too small to characterize, or any incidental cystic renal lesion characterized as simple-appearing, is likely benign. No follow-up imaging is recommended for these lesions per consensus recommendations based on imaging criteria. Laboratory Results WBC 6.4 10^3/uL (4.0-10.0) 12/12/22 15:04 RBC 3.88 10^6/uL (4.1-5.3) L 12/12/22 15:04 Hgb 11.2 g/dL (11.5-15.3) L 12/12/22 15:04 Hct 34.4 % (37.0-47.0) L 12/12/22 15:04 MCV 88.7 fl (81-99) 12/12/22 15:04 MCH 28.9 pg (28.0-34.0) 12/12/22 15:04 MCHC 32.6 g/dL (30.0-36.0) 12/12/22 15:04 RDW 13.1 % (12.1-15.1) 12/12/22 15:04 Plt Count 352 10^3/cmm (130-400) 12/12/22 15:04 MPV 9.9 fL (7.4-10.4) 12/12/22 15:04 Neut % (Auto) 66.0 % 12/12/22 15:04 Lymph % (Auto) 21.3 % 12/12/22 15:04 Hunt % (Auto) 10.2 % 12/12/22 15:04 Eos % (Auto) 1.7 % 12/12/22 15:04 Baso % (Auto) 0.5 % 12/12/22 15:04 Neut # (Auto) 4.21 10^3/uL (1.8-7.7) 12/12/22 15:04 Lymph # (Auto) 1.4 10^3/uL (0.8-4.8) 12/12/22 15:04 Hunt # (Auto) 0.7 10^3/uL (0.2-0.9) 12/12/22 15:04 Eos # (Auto) 0.1 10^3/uL (0.0-0.8) 12/12/22 15:04 Baso # (Auto) 0.0 10^3/uL (0.0-0.1) 12/12/22 15:04 Nucleated RBC % (auto) 0 % 12/12/22 15:04 Nucleated RBCs # 0.0 /100WBC 12/12/22 15:04 Sodium 136 mmol/L (136-145) 12/12/22 15:04 Potassium 4.4 mmol/L (3.5-5.1) 12/12/22 15:04 Chloride 101 mmol/L (98-107) 12/12/22 15:04 Carbon Dioxide 24 mmol/L (22-29) 12/12/22 15:04 Anion Gap 15.4 (5-19) 12/12/22 15:04 BUN 28 mg/dL (8-23) H 12/12/22 15:04 Creatinine 0.9 mg/dL (0.5-0.9) 12/12/22 15:04 GFR Calculation Not Reportable 12/12/22 15:04 Glucose 227 mg/dL (65-115) H 12/12/22 15:04 Calculated Osmolality 295 mOsm/kg (285-295) 12/12/22 15:04 Calcium 9.8 mg/dL (8.5-10.5) 12/12/22 15:04 Total Bilirubin 0.3 mg/dL (0.15-1.2) 12/12/22 15:04 AST 21 U/L (0-32) 12/12/22 15:04 ALT 18 U/L (0-33) 12/12/22 15:04 Alkaline Phosphatase 29 U/L (35-105) L 12/12/22 15:04 Total Protein 7.2 g/dL (6.6-8.7) 12/12/22 15:04 Albumin 4.3 g/dL (3.5-5.2) 12/12/22 15:04 Globulin 2.9 g/dL (1.3-4.6) 12/12/22 15:04 Urine Color Yellow (Yellow) 12/12/22 16:34 Urine Appearance Sl hazy (CLEAR) A 12/12/22 16:34 Urine pH 6 (5-7) 12/12/22 16:34 Ur Specific [place] 1.020 (1.005-1.030) 12/12/22 16:34 Urine Protein Neg (Negative) 12/12/22 16:34 Urine Glucose (UA) 1+ (Normal) H 12/12/22 16:34 Urine Ketones Negative (Negative) 12/12/22 16:34 Urine Blood Neg (Negative) 12/12/22 16:34 Urine Nitrate Negative (Negative) 12/12/22 16:34 Urine Bilirubin Neg (Negative) 12/12/22 16:34 Urine Urobilinogen Norm mg/dL (Negative) 12/12/22 16:34 Ur Leukocyte Esterase 1+ (Negative) H 12/12/22 16:34 Urine RBC 0-4 /hpf (0-2) H 12/12/22 16:34 Urine WBC 25-40 /hpf (0-5) H 12/12/22 16:34 Ur Squamous Epith Cells 40-55 /hpf (0-5) H 12/12/22 16:34 Amorphous Sediment Not Reportable 12/12/22 16:34 Urine Bacteria Trace /hpf (NONE) 12/12/22 16:34 Discharge Plan Discharge Patient Disposition: Home Clinical Impression: Fall, Multiple contusions, Anemia, mild, Contusion of ribs, Adrenal nodule, Gallstones Condition: Stable Prescriptions: No Action atorvastatin 40 mg tablet 40 mg PO DAILY insulin glargine [Lantus U-100 Insulin] 100 unit/mL solution 72 unit SUBCUT BID lisinopril 20 mg tablet 20 mg PO DAILY glimepiride 4 mg tablet 4 mg PO DAILY fenofibrate nanocrystallized 145 mg tablet 145 mg PO DAILY Trulicity 0.75 mg/0.5 mL pen injector 0.75 mg SUBCUT Q7D Rx Instructions: On Friday Discharge Orders: Discharge ED (Routine); Ordered 12/12/22 Ordered By: Curly Fuentes Referrals: Toan Espinoza, [Primary Care Provider] - Discharge Diet: Usual diet Discharge Activity: Increase activity as tolerated Patient Instructions: Fall Prevention for Older Adults (ED), Contusion in Adults (ED) Activity Restrictions/Additional Instructions: Thank you for visiting the emergency department. You were seen and evaluated for fall with pain. The most likely cause of your symptoms is soft tissue and bony bruising. No acute internal injuries or fractures (broken bones) were identified. I would expect improvement in the next few days. You may use [id number] medications such as acetaminophen and ibuprofen for pain however please do not exceed the daily recommended dosage as listed on the packaging and please keep in mind that many namebrand medications contain the same active ingredients. Please avoid these medications if previously instructed to do so by another physician due to other underlying medical condition. If using NSAIDs please also take a [id number] proton pump inhibitor or H2 ben for gastric protection. Please follow-up with your primary care provider. Return to the emergency department for uncontrolled symptoms or anything else that you are concerned about and feel needs emergency room evaluation. Coding Level of Care Code ED Solids Control Technician for Aliyah Peter
--- NOTE | 2022-12-12 14:52 | CTR_ITS ---
PROCEDURE INFORMATION: Exam: CT Chest With Contrast; Diagnostic Exam date and time: 12/12/2022 3:51 PM Age: 82 years old Clinical indication: Injury or trauma; Fall; Luq; Blunt trauma (contusions or hematomas); Additional info: Fall, L sided chest and back/pelvis pain TECHNIQUE: Imaging protocol: Diagnostic computed tomography of the chest with contrast. Radiation optimization: All CT scans at this facility use at least one of these dose optimization techniques: automated exposure control; mA and/or kV adjustment per patient size (includes targeted exams where dose is matched to clinical indication); or iterative reconstruction. Contrast material: OMNI 350; Contrast volume: 100 ml; Contrast route: INTRAVENOUS (IV); REPORTING DATA: Count of CT and Cardiac NM exams in prior 12 months: This patient has received [address] and 0 known cardiac nuclear medicine studies in the 12 months prior to the current study. COMPARISON: CR XR chest 1V portable [id number] 09/10/2022 11:53 AM RADIATION DOSE METRICS: Total DLP (mGy-cm): 1100.13 FINDINGS: Lungs: No consolidation. No masses. Pleural spaces: No pneumothorax. No pleural effusion. Heart: Coronary artery calcifications noted. No cardiomegaly. No pericardial effusion. Lymph nodes: No enlarged lymph nodes. Vasculature: No aortic aneurysm. Bones/joints: No acute fracture. Soft tissues: Unremarkable. PROCEDURE INFORMATION: Exam: CT Abdomen And Pelvis With Contrast Exam date and time: 12/12/2022 3:51 PM Age: 82 years old Clinical indication: Injury or trauma; Fall; Luq; Blunt trauma (contusions or hematomas); Additional info: Fall, L sided chest and back/pelvis pain TECHNIQUE: Imaging protocol: Computed tomography of the abdomen and pelvis with contrast. Radiation optimization: All CT scans at this facility use at least one of these dose optimization techniques: automated exposure control; mA and/or kV adjustment per patient size (includes targeted exams where dose is matched to clinical indication); or iterative reconstruction. Contrast material: OMNI 350; Contrast volume: 100 ml; Contrast route: INTRAVENOUS (IV); REPORTING DATA: Count of CT and Cardiac NM exams in prior 12 months: This patient has received [address] and 0 known cardiac nuclear medicine studies in the 12 months prior to the current study. COMPARISON: CR XR chest 1V portable [id number] 09/10/2022 11:53 AM RADIATION DOSE METRICS: Total DLP (mGy-cm): 1100.13 FINDINGS: Liver: Normal. No mass. Gallbladder and bile ducts: Punctate cholelithiasis. No ductal dilation. Pancreas: Normal. No ductal dilation. Spleen: Scattered punctate calcified granulomas. No splenomegaly. Adrenal glands: 1.5 cm left adrenal nodule noted. Kidneys and ureters: Subcentimeter cyst noted in the right kidney. No hydronephrosis. Stomach and bowel: Colonic diverticulosis. No obstruction. No mucosal thickening. Appendix: No evidence of appendicitis. Intraperitoneal space: No free air. No significant fluid collection. Vasculature: No abdominal aortic aneurysm. Lymph nodes: No enlarged lymph nodes. Urinary bladder: Unremarkable as visualized. Reproductive: Unremarkable as visualized. Bones/joints: No acute fracture. Soft tissues: Subcutaneous stranding noted along the lower abdominal wall which may reflect contusions given history of fall. CT/CT chest abdpel w/*[id number] IMPRESSION: No acute traumatic intrathoracic findings. IMPRESSION: No acute traumatic intra-abdominal findings. COMMENTS: Consistent with the [employer]'s Incidental Findings Committee white paper (J Am Paras Radiol 2018): Any incidental renal lesion less than 1 cm or classified as too small to characterize, or any incidental cystic renal lesion characterized as simple-appearing, is likely benign. No follow-up imaging is recommended for these lesions per consensus recommendations based on imaging criteria.
[2022-12-12] MEDS: ketorolac 30 mg/mL INJ 15 MG IVP (15:27)
[2022-12-12 15:30] LABS: Basophils % 0.5 %; Eosinophils # 0.1 10^3/uL (0.0-0.8); Eosinophils % 1.7 %; Hematocrit 34.4 % (37.0-47.0); Hemoglobin 11.2 g/dL (11.5-15.3); Lymphocytes # 1.4 10^3/uL (0.8-4.8); Lymphocytes % 21.3 %; Mean Corpuscular HGB Conc 32.6 g/dL (30.0-36.0); Mean Corpuscular Hemoglobin 28.9 pg (28.0-34.0); Mean Corpuscular Volume 88.7 fl (81-99); Mean Platelet Volume 9.9 fL (7.4-10.4); Monocytes # 0.7 10^3/uL (0.2-0.9); Monocytes % 10.2 %; Neutrophils # 4.21 10^3/uL (1.8-7.7); Nucleated Red Blood Cells % 0 %; Platelet Count 352 10^3/cmm (130-400); Red Blood Count 3.88 10^6/uL (4.1-5.3); Red Cell Distribution Width 13.1 % (12.1-15.1); White Blood Count 6.4 10^3/uL (4.0-10.0)
[2022-12-12 15:39] LABS: Alanine Aminotransferase 18 U/L (0-33); Albumin Level 4.3 g/dL (3.5-5.2); Alkaline Phosphatase 29 U/L (35-105); Anion Gap 15.4 (5-19); Aspartate Amino Transferase 21 U/L (0-32); Blood Urea Nitrogen 28 mg/dL (8-23); Calcium 9.8 mg/dL (8.5-10.5); Carbon Dioxide 24 mmol/L (22-29); Chloride 101 mmol/L (98-107); Globulin 2.9 g/dL (1.3-4.6); Glucose 227 mg/dL (65-115); Osmolality Calculated 295 mOsm/kg (285-295); Potassium 4.4 mmol/L (3.5-5.1); Sodium 136 mmol/L (136-145); Total Bilirubin 0.3 mg/dL (0.15-1.2); Total Protein 7.2 g/dL (6.6-8.7)
[2022-12-12] MEDS: iohexol 350 mg/mL 500 mL Btl (per mL) IV (15:59)
[2022-12-12 16:43] VITALS: BP 179/85; PULSE 96; O2SAT 96
[2022-12-12 16:57] LABS: Add Urine Culture? No; Add Urine Microscopic? YES; Bacteria Urine TRACE /hpf; Bilirubin Urine Neg (Negative); Blood Urine Neg (Negative); Glucose Urine UA 1+ (Normal); Ketones Urine Negative (Negative); Leukocyte Esterase Urine 1+ (Negative); Nitrate Urine Negative (Negative); Protein Urine Neg (Negative); RBC Urine 0-4 /hpf (0-2); Squamous Epithelial Cell Urine 40-55 /hpf (0-5); Urine Appearance SL Hazy (CLEAR); Urine Color Yellow (Yellow); Urobilinogen Urine Norm (Negative); WBC Urine 25-40 /hpf (0-5); pH Urine 6 (5-7)
== END 2022-12-12 17:33 | disposition home or self-care (01) ==
PROVIDERS: Emergency Provider Emergency Medicine; PCP Electrodiagnostic Medicine
DX: S20.212A Contusion of left front wall of thorax, initial encounter (principal); D64.9 Anemia, unspecified; E27.8 Other specified disorders of adrenal gland; K80.20 Calculus of gallbladder without cholecystitis without obstruction; Z79.85 Long-term (current) use of injectable non-insulin antidiabetic drugs; Z79.84 Long term (current) use of oral hypoglycemic drugs; Z79.4 Long term (current) use of insulin; W18.30XA Fall on same level, unspecified, initial encounter
CPT/HCPCS: 71260; 74177; 80053; 81001; 85025; 96374; 99285; J1885; Q9967

== ENCOUNTER 2023-11-12 09:37 | Outpatient (CLI) | payer MEDICARE, MEDICAID, SELFPAY ==
--- NOTE | 2023-11-12 09:42 | USCV_ITS ---
Danelle Elaine Age: 83 Gender: F : 1940 Exam Date: 11/12/2023 09:46 Ordering Phys: Toan Espinoza DO Technologist: Exam Location: [facility] [place]_ Indication: PVD RIGHT LEFT Brachial 163.00 mmHg Brachial 165.00 mmHg Pressure (mmHg) Waveform Pressure (mmHg) Waveform 118.00 TRANSLATOR AND INTERPRETER 116.00 115.00 DPA 97.00 0.72 Ankle/Brachial Index 0.70 98.00 Pre-Exercise Toe Pressure 93.00 FINDINGS Resting GINNY 0.72 on the right side and 0.7 on the left Resting TBI 0.59 on the right and 0.56 on the left CONCLUSIONS 1. Abnormal resting GINNY and TBI bilaterally suggesting moderate peripheral artery disease No similar previous studies are available for comparison Dr Rosa Lugo MD [facility] (Electronically Signed) Final Date: 14 November 2023 00:32 S
== END 2023-11-12 09:38 | disposition home or self-care (01) ==
LOC: RAD 09:37
PROVIDERS: PCP Electrodiagnostic Medicine; Visit Provider Electrodiagnostic Medicine
DX: I73.9 Peripheral vascular disease, unspecified (principal)
CPT/HCPCS: 93922

== ENCOUNTER → 2024-01-08 11:09 | Outpatient (BNVA) | payer MEDICARE, MEDICAID, SELFPAY | PROVIDERS: PCP Electrodiagnostic Medicine; Referring Provider Electrodiagnostic Medicine; Visit Provider Physician Assistant | DX: M17.12 Unilateral primary osteoarthritis, left knee | CPT/HCPCS: 73560; 73565 ==

== ENCOUNTER 2024-01-08 15:20 | Outpatient (CLI) | payer MEDICARE, MEDICAID, SELFPAY | END 2024-01-08 15:21 | disposition home or self-care (01) | LOC: SPT 15:21 | PROVIDERS: PCP Electrodiagnostic Medicine; Visit Provider Physician Assistant | DX: Z46.89 Encounter for fitting and adjustment of other specified devices (principal); M17.12 Unilateral primary osteoarthritis, left knee | CPT/HCPCS: 20610; 97760; 99203; J3301; L1851 ==

== ENCOUNTER 2024-01-20 20:29 | Observation (INO) | payer MEDICARE, MEDICAID, SELFPAY ==
[2024-01-20 20:30] VITALS: BP 136/68; PULSE 91; RESP 18; TEMP 36.5; O2SAT 97; BMI 30.9
--- NOTE | 2024-01-20 20:35 | XRR_ITS ---
PROCEDURE INFORMATION: Exam: XR Abdomen Exam date and time: 01/20/2024 9:01 PM Age: 83 years old Clinical indication: Nausea and vomiting TECHNIQUE: Imaging protocol: Radiologic exam of the abdomen. Views: 2 Views. Upright and supine views. COMPARISON: CT chest abdpel w/*[id number] 12/12/2022 3:51 PM FINDINGS: Pleural spaces: There is blunting of the costophrenic angles. This may represent pleural thickening and/or scarring. Small pleural effusions cannot be excluded. Diaphragm: Mild elevation of the left hemidiaphragm. Gastrointestinal tract: Normal. No bowel dilation. Intraperitoneal space: Normal. No free air. Vasculature: There is calcified plaque in the aortic arch. Bones/joints: Unremarkable for age. Other findings: Moderate stool burden. XR/XR acute abdomen series [id number] IMPRESSION: 1. There is blunting of the costophrenic angles. This may represent pleural thickening and/or scarring. Small pleural effusions cannot be excluded. 2. Moderate stool burden.
[2024-01-20 20:53] VITALS: BP 136/68; PULSE 90; O2SAT 93
[2024-01-20] MEDS: ondansetron 2 mg/ML SDV 2 mL 8 MG IVP (20:56)
[2024-01-20] MEDS: sodium chloride 0.9% 1,000 ML 999 ML IV (20:56)
[2024-01-20 21:04] LABS: Basophils % 0.3 %; Eosinophils # 0.1 10^3/uL (0.0-0.8); Eosinophils % 0.8 %; Hematocrit 36.4 % (36-47); Lymphocytes # 1.6 10^3/uL (0.8-4.8); Lymphocytes % 16.9 %; Mean Corpuscular HGB Conc 32.4 g/dL (30-55); Mean Corpuscular Hemoglobin 28.6 pg (27-33); Mean Corpuscular Volume 88.3 fl (85-98); Mean Platelet Volume 9.9 fL (7.4-10.4); Monocytes # 0.8 10^3/uL (0.2-0.9); Monocytes % 8.5 %; Neutrophils # 6.89 10^3/uL (1.8-7.7); Neutrophils % 73.1 %; Nucleated Red Blood Cells % 0 %; Platelet Count 402 10^3/cmm (157-399); Red Blood Count 4.12 10^6/uL (3.85-5.65); Red Cell Distribution Width 13.5 % (12.1-15.1); White Blood Count 9.43 10^3/uL (3.29-11.43)
--- NOTE | 2024-01-20 21:39 | W.ED.WEAKNES ---
Documented by User: Nhung Jarrell MD 01/20/24 21:48 HPI - Weakness General: Chief complaint: Weakness Stated complaint: Weakness Time Seen by Provider: 01/20/24 20:30 History of Present Illness: 83-year-old female with history of diabetes, hypertension hyperlipidemia w who presents to the emergency room with nausea and vomiting for about 3 to 4 days now. She has become very weak she says. Initially she had some diarrhea but then she is continue to have nausea and vomiting. No focal abdominal pain. No altered mental status. About 3 days ago she had a fall and could not get up. She did not injure herself or hit her head at that time. No loss of consciousness. She complains of generalized weakness as her main concern at this point. Sounds like maybe her family called 911 Review of Systems Narrative: Constitutional symptoms: Negative except as documented in HPI. Skin symptoms: Negative except as documented in HPI. Eye symptoms: Negative except as documented in HPI. ENMT symptoms: Negative except as documented in HPI. Respiratory symptoms: Negative except as documented in HPI. Cardiovascular symptoms: Negative except as documented in HPI. Gastrointestinal symptoms: Negative except as documented in HPI. Genitourinary symptoms: Negative except as documented in HPI. Musculoskeletal symptoms: Negative except as documented in HPI. Neurologic symptoms: Negative except as documented in HPI. Psychiatric symptoms: Negative except as documented in HPI. Endocrine symptoms: Negative except as documented in HPI. PFSH ED PFSH: Social History Smoking and tobacco/nicotine status: never used tobacco/nicotine Physical Exam Narrative: EXAM NARRATIVE: General: Alert, no acute distress. Skin: Warm, dry. Head: Normocephalic, atraumatic. Neck: Supple, trachea midline. Eye: Extraocular movements are intact. Ears, nose, mouth and throat: Dry oral mucosa Cardiovascular: Regular, Normal peripheral perfusion. Respiratory: Lungs are clear to auscultation, respirations are non-labored, breath sounds are equal, Symmetrical chest wall expansion. Gastrointestinal: Soft, Nontender, Non distended Musculoskeletal: Normal ROM, no deformity. Neurological: Alert and oriented, No focal neurological deficit observed. Psychiatric: Cooperative, appropriate mood & affect. Course Vital Signs: Vital signs: Vital Signs Temperature 97.7 F 01/20/24 20:30 Pulse Rate 96 01/20/24 23:05 Respiratory Rate 18 01/20/24 20:30 Blood Pressure 128/64 01/20/24 23:05 Pulse Oximetry 96 01/20/24 23:05 Oxygen Delivery Me thod Room Air 01/20/24 20:53 MDM - Weakness Medical Decision Making Medical decision making: Differential diagnosis for this patient with nausea and vomiting including but not limited to and based on the above HPI, review of systems and physical exam: Urinary tract infection. Appendicitis. Cholecystis. colitis. small bowel obstruction. crohn's flare. pancreatitis. gastritis. peptic ulcer. cyclic vomiting. Viral illness. Influenza. COVID. - Workup - labwork and imaging ordered to evaluate, rule in and rule out above pathologies. Acute abdominal series: chest x-ray: No acute process. No obvious infiltrates. No pneumothorax. No cardiomegaly. This was reviewed and interpreted by myself the emergency room physician Abdomen x-ray: Nonspecific bowel gas pattern. No evidence of free air or obstruction. This was reviewed and interpreted by myself the emergency room physician. Patient care transition to [facility] at shift change. Lab Data 01/20/24 20:48 01/20/24 20:48 Radiology Impressions Chest/Abdomen X-ray 01/20/24 20:35 IMPRESSION: 1. There is blunting of the costophrenic angles. This may represent pleural thickening and/or scarring. Small pleural effusions cannot be excluded. 2. Moderate stool burden. Laboratory Results WBC 9.43 10^3/uL (3.29-11.43) 01/20/24 20:48 RBC 4.12 10^6/uL (3.85-5.65) 01/20/24 20:48 Hgb 11.80 g/dL (11.27-16.99) 01/20/24 20:48 Hct 36.4 % (36-47) 01/20/24 20:48 MCV 88.3 fl (85-98) 01/20/24 20:48 MCH 28.6 pg (27-33) 01/20/24 20:48 MCHC 32.4 g/dL (30-55) 01/20/24 20:48 RDW 13.5 % (12.1-15.1) 01/20/24 20:48 Plt Count 402 10^3/cmm (157-399) H 01/20/24 20:48 MPV 9.9 fL (7.4-10.4) 01/20/24 20:48 Neut % (Auto) 73.1 % 01/20/24 20:48 Lymph % (Auto) 16.9 % 01/20/24 20:48 [place] % (Auto) 8.5 % 01/20/24 20:48 Eos % (Auto) 0.8 % 01/20/24 20:48 Baso % (Auto) 0.3 % 01/20/24 20:48 Neut # (Auto) 6.89 10^3/uL (1.8-7.7) 01/20/24 20:48 Lymph # (Auto) 1.6 10^3/uL (0.8-4.8) 01/20/24 20:48 [place] # (Auto) 0.8 10^3/uL (0.2-0.9) 01/20/24 20:48 Eos # (Auto) 0.1 10^3/uL (0.0-0.8) 01/20/24 20:48 Baso # (Auto) 0.0 10^3/uL (0.0-0.1) 01/20/24 20:48 Nucleated RBC % (auto) 0 % 01/20/24 20:48 Nucleated RBCs # 0.0 /100WBC 01/20/24 20:48 Sodium 137 mmol/L (136-145) 01/20/24 20:48 Potassium 5.6 mmol/L (3.5-5.1) H 01/20/24 20:48 Chloride 104 mmol/L (98-107) 01/20/24 20:48 Carbon Dioxide 20 mmol/L (22-29) L 01/20/24 20:48 Anion Gap 18.6 (5-19) 01/20/24 20:48 BUN 67 mg/dL (8-23) H 01/20/24 20:48 Creatinine 1.6 mg/dL (0.5-0.9) H 01/20/24 20:48 GFR Calculation Not Reportable 01/20/24 20:48 Glucose 133 mg/dL (65-115) H 01/20/24 20:48 Calculated Osmolality 305 mOsm/kg (285-295) H 01/20/24 20:48 Lactic Acid 1.2 mmol/L (0.5-2.2) 01/20/24 20:48 Calcium 9.2 mg/dL (8.5-10.5) 01/20/24 20:48 Total Bilirubin 0.5 mg/dL (0.15-1.2) 01/20/24 20:48 AST 15 U/L (0-32) 01/20/24 20:48 ALT 16 U/L (0-33) 01/20/24 20:48 Alkaline Phosphatase 31 U/L (35-105) L 01/20/24 20:48 C-Reactive Protein 8.1 mg/L (0.0-4.9) H 01/20/24 20:48 Total Protein 7.4 g/dL (6.6-8.7) 01/20/24 20:48 Albumin 4.2 g/dL (3.5-5.2) 01/20/24 20:48 Globulin 3.2 g/dL (1.3-4.6) 01/20/24 20:48 Lipase 35 U/L (13-60) 01/20/24 20:48 Urine Color Yellow (Yellow) 01/20/24 21:43 Urine Appearance Slightly cloudy (CLEAR) 01/20/24 21:43 Urine pH 5 (5-7) 01/20/24 21:43 Ur Specific [place] 1.015 (1.005-1.030) 01/20/24 21:43 Urine Protein Neg (Negative) 01/20/24 21:43 Urine Glucose (UA) Norm (Normal) 01/20/24 21:43 Urine Ketones 1+ (Negative) H 01/20/24 21:43 Urine Blood Neg (Negative) 01/20/24 21:43 Urine Nitrate Negative (Negative) 01/20/24 21:43 Urine Bilirubin Neg (Negative) 01/20/24 21:43 Urine Urobilinogen Neg mg/dL (Negative) 01/20/24 21:43 Ur Leukocyte Esterase 2+ (Negative) H 01/20/24 21:43 Urine RBC 0-4 /hpf (0-2) H 01/20/24 21:43 Urine WBC 0-4 /hpf (0-5) H 01/20/24 21:43 Ur Squamous Epith Cells 5-10 /hpf (0-5) H 01/20/24 21:43 Amorphous Sediment Not Reportable 01/20/24 21:43 Urine Bacteria None /hpf (NONE) 01/20/24 21:43 Discharge Plan Discharge Patient Disposition: Admitted As Inpatient Clinical Impression: Acute on chronic renal insufficiency, Dehydration, Vomiting Condition: Stable Sign Out Sign Out Data: Patient Sign Out occurred on 01/20/24 at 22:01. Patient's care was discussed, and care was transferred from Nhung Jarrell MD to NARA Steve. Coding Level of Care Code ED Abattoir Supervisor for Chg Fwd Documented by User: NARA Steve 01/21/24 00:18 HPI - Weakness General: Chief complaint: Weakness Stated complaint: Weakness Time Seen by Provider: 01/20/24 20:30 PFSH ED PFSH: Social History Smoking and tobacco/nicotine status: never used tobacco/nicotine Course Vital Signs: Vital signs: Vital Signs Temperature 97.7 F 01/20/24 20:30 Pulse Rate 96 01/20/24 23:05 Respiratory Rate 18 01/20/24 20:30 Blood Pressure 128/64 01/20/24 23:05 Pulse Oximetry 96 01/20/24 23:05 Oxygen Delivery Me thod Room Air 01/20/24 20:53 MDM - Weakness Medical Decision Making Medical decision making: Differential diagnosis for this patient with nausea and vomiting including but not limited to and based on the above HPI, review of systems and physical exam: Urinary tract infection. Appendicitis. Cholecystis. colitis. small bowel obstruction. crohn's flare. pancreatitis. gastritis. peptic ulcer. cyclic vomiting. Viral illness. Influenza. COVID. - Workup - labwork and imaging ordered to evaluate, rule in and rule out above pathologies. Acute abdominal series: chest x-ray: No acute process. No obvious infiltrates. No pneumothorax. No cardiomegaly. This was reviewed and interpreted by myself the emergency room physician Abdomen x-ray: Nonspecific bowel gas pattern. No evidence of free air or obstruction. This was reviewed and interpreted by myself the emergency room physician. Patient care transition to [facility] at shift change. Patient has labs consistent with potentially an acute renal failure as her BUN and creatinine are increased from prior obtained one year ago. Potassium was also found to be elevated and she does have signs of infection on urinalysis. Spoke with hospitalist, Dr. Easton, who agrees to accept the patient for observation. Patient was given IV dose of Rocephin as well is fluids and nausea medication. Lab Data 01/20/24 20:48 01/20/24 20:48 Radiology Impressions Chest/Abdomen X-ray 01/20/24 20:35 IMPRESSION: 1. There is blunting of the costophrenic angles. This may represent pleural thickening and/or scarring. Small pleural effusions cannot be excluded. 2. Moderate stool burden. Laboratory Results WBC 9.43 10^3/uL (3.29-11.43) 01/20/24 20:48 RBC 4.12 10^6/uL (3.85-5.65) 01/20/24 20:48 Hgb 11.80 g/dL (11.27-16.99) 01/20/24 20:48 Hct 36.4 % (36-47) 01/20/24 20:48 MCV 88.3 fl (85-98) 01/20/24 20:48 MCH 28.6 pg (27-33) 01/20/24 20:48 MCHC 32.4 g/dL (30-55) 01/20/24 20:48 RDW 13.5 % (12.1-15.1) 01/20/24 20:48 Plt Count 402 10^3/cmm (157-399) H 01/20/24 20:48 MPV 9.9 fL (7.4-10.4) 01/20/24 20:48 Neut % (Auto) 73.1 % 01/20/24 20:48 Lymph % (Auto) 16.9 % 01/20/24 20:48 [place] % (Auto) 8.5 % 01/20/24 20:48 Eos % (Auto) 0.8 % 01/20/24 20:48 Baso % (Auto) 0.3 % 01/20/24 20:48 Neut # (Auto) 6.89 10^3/uL (1.8-7.7) 01/20/24 20:48 Lymph # (Auto) 1.6 10^3/uL (0.8-4.8) 01/20/24 20:48 [place] # (Auto) 0.8 10^3/uL (0.2-0.9) 01/20/24 20:48 Eos # (Auto) 0.1 10^3/uL (0.0-0.8) 01/20/24 20:48 Baso # (Auto) 0.0 10^3/uL (0.0-0.1) 01/20/24 20:48 Nucleated RBC % (auto) 0 % 01/20/24 20:48 Nucleated RBCs # 0.0 /100WBC 01/20/24 20:48 Sodium 137 mmol/L (136-145) 01/20/24 20:48 Potassium 5.6 mmol/L (3.5-5.1) H 01/20/24 20:48 Chloride 104 mmol/L (98-107) 01/20/24 20:48 Carbon Dioxide 20 mmol/L (22-29) L 01/20/24 20:48 Anion Gap 18.6 (5-19) 01/20/24 20:48 BUN 67 mg/dL (8-23) H 01/20/24 20:48 Creatinine 1.6 mg/dL (0.5-0.9) H 01/20/24 20:48 GFR Calculation Not Reportable 01/20/24 20:48 Glucose 133 mg/dL (65-115) H 01/20/24 20:48 Calculated Osmolality 305 mOsm/kg (285-295) H 01/20/24 20:48 Lactic Acid 1.2 mmol/L (0.5-2.2) 01/20/24 20:48 Calcium 9.2 mg/dL (8.5-10.5) 01/20/24 20:48 Total Bilirubin 0.5 mg/dL (0.15-1.2) 01/20/24 20:48 AST 15 U/L (0-32) 01/20/24 20:48 ALT 16 U/L (0-33) 01/20/24 20:48 Alkaline Phosphatase 31 U/L (35-105) L 01/20/24 20:48 C-Reactive Protein 8.1 mg/L (0.0-4.9) H 01/20/24 20:48 Total Protein 7.4 g/dL (6.6-8.7) 01/20/24 20:48 Albumin 4.2 g/dL (3.5-5.2) 01/20/24 20:48 Globulin 3.2 g/dL (1.3-4.6) 01/20/24 20:48 Lipase 35 U/L (13-60) 01/20/24 20:48 Urine Color Yellow (Yellow) 01/20/24 21:43 Urine Appearance Slightly cloudy (CLEAR) 01/20/24 21:43 Urine pH 5 (5-7) 01/20/24 21:43 Ur Specific [place] 1.015 (1.005-1.030) 01/20/24 21:43 Urine Protein Neg (Negative) 01/20/24 21:43 Urine Glucose (UA) Norm (Normal) 01/20/24 21:43 Urine Ketones 1+ (Negative) H 01/20/24 21:43 Urine Blood Neg (Negative) 01/20/24 21:43 Urine Nitrate Negative (Negative) 01/20/24 21:43 Urine Bilirubin Neg (Negative) 01/20/24 21:43 Urine Urobilinogen Neg mg/dL (Negative) 01/20/24 21:43 Ur Leukocyte Esterase 2+ (Negative) H 01/20/24 21:43 Urine RBC 0-4 /hpf (0-2) H 01/20/24 21:43 Urine WBC 0-4 /hpf (0-5) H 01/20/24 21:43 Ur Squamous Epith Cells 5-10 /hpf (0-5) H 01/20/24 21:43 Amorphous Sediment Not Reportable 01/20/24 21:43 Urine Bacteria None /hpf (NONE) 01/20/24 21:43 All radiology interpretation(s) finalized by discharge Discharge Plan Discharge Patient Disposition: Admitted As Inpatient Clinical Impression: Acute on chronic renal insufficiency, Dehydration, Vomiting Condition: Stable Sign Out Sign Out Data: Patient Sign Out occurred on 01/20/24 at 22:01. Patient's care was discussed, and care was transferred from Nhung Jarrell MD to NARA Steve. Coding Level of Care Code ED Abattoir Supervisor for Aliyah Peter
[2024-01-20 21:43] LABS: Alanine Aminotransferase 16 U/L (0-33); Albumin Level 4.2 g/dL (3.5-5.2); Alkaline Phosphatase 31 U/L (35-105); Aspartate Amino Transferase 15 U/L (0-32); Blood Urea Nitrogen 67 mg/dL (8-23); C Reactive Protein 8.1 mg/L (0.0-4.9); Calcium 9.2 mg/dL (8.5-10.5); Carbon Dioxide 20 mmol/L (22-29); Creatinine Clr Calc Pharmacy 27.5386; Globulin 3.2 g/dL (1.3-4.6); Glucose 133 mg/dL (65-115); Lipase 35 U/L (13-60); Total Bilirubin 0.5 mg/dL (0.15-1.2); Total Protein 7.4 g/dL (6.6-8.7)
[2024-01-20 21:45] LABS: Lactic Sepsis W/Reflex 1.2 mmol/L (0.5-2.2)
[2024-01-20 22:03] LABS: Bilirubin Urine Neg (Negative); Blood Urine Neg (Negative); Glucose Urine UA Norm (Normal); Ketones Urine 1+ (Negative); Leukocyte Esterase Urine 2+ (Negative); Nitrate Urine Negative (Negative); Protein Urine Neg (Negative); RBC Urine 0-4 /hpf (0-2); Specific Gravity, Urine 1.015 (1.005-1.030); Urine Appearance Slightly Cloudy (CLEAR); Urine Color Yellow (Yellow); Urobilinogen Urine Neg (Negative); WBC Urine 0-4 /hpf (0-5); pH Urine 5 (5-7)
[2024-01-20 22:04] LABS: Add Urine Culture? No
[2024-01-20 23:00] VITALS: PULSE 95; O2SAT 96
[2024-01-20] MEDS: cefTRIAXone 1,000 mg SDV 1000 MG IVP (23:00)
[2024-01-20 23:05] VITALS: BP 128/64; PULSE 96; O2SAT 96
[2024-01-20 23:30] VITALS: BP 125/63
--- NOTE | 2024-01-20 23:48 | P.HP_ITS ---
Providers/Chief Complaint 2 Primary Care Provider: Toan Espinoza DO Chief Complaint: Weakness History of Present Illness Danelle Elaine is a 83 year old female With past medical history of diabetes, hypertension, hyperlipidemia presented to the hospital with complaint of nausea vomiting that has been going on for the last 3 to 4 days. She says she has developed generalized weakness. Prior to the nausea vomiting she did have some diarrhea however however also has resolved at this point. She ate meat prior that was frozen store-bought and immediately thereafter developed symptoms which self resolved within 24 hours. She did lay on the floor secondary to weakness for greater than 12 to 15 hours. Denies any gross abdominal pain patient is alert oriented x 3. She says she also had a fall recently however did not injure herself or hit her head. Did not lose consciousness. Her main complaint at this time is weakness. Patient's sister and daughter at bedside. ER course 136/68, saturating 93% on room air, respirate 18, pulse 90, temperature 97.7. Chest x-ray does not show any acute process no obvious infiltrates, no pneumothorax, no cardiomegaly. Abdominal x-ray nonspecific bowel gas pattern. Initial labs obtained show some hemoconcentrateion, platelets 402, creatinine 1.6, BUN 67. Lactic acid 1.2. C-reactive protein 8.1. Liver enzymes normal. Previously patient's creatinine has been normal range. Home medications need to be confirmed but if prior working list does show meloxicam, lisinopril, glargine, Trulicity. We will reconfirm this with the patient. Medications/Allergies Home Medications Medication Instructions Recorded Confirmed Last Taken Type atorvastatin 40 mg tablet 40 mg PO DAILY 03/18/21 01/21/24 1 Day Ago History ~01/20/24 dulaglutide 0.75 mg/0.5 mL 0.75 mg SUBCUT Q7D 03/18/21 01/21/24 01/17/24 History subcutaneous pen injector (Trulicity) fenofibrate nanocrystallized 145 145 mg PO DAILY 03/18/21 01/21/24 1 Day Ago History mg tablet ~01/20/24 glimepiride 4 mg tablet 4 mg PO DAILY 03/18/21 01/21/24 01/19/24 History insulin glargine 100 unit/mL 72 unit SUBCUT BID 03/18/21 01/21/24 01/20/24 History subcutaneous solution (Lantus U-100 Insulin) lisinopril 20 mg tablet 20 mg PO DAILY 03/18/21 01/21/24 01/19/24 History 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 01/08/24 01/21/24 Unknown Rx meloxicam 7.5 mg tablet 7.5 mg PO DAILY knee pain #30 tabs 01/08/24 01/21/24 01/19/24 Rx Allergies Allergy/AdvReac Type Severity Reaction Status Date / Time codeine Allergy Mild ADR-Nausea Verified 01/20/24 20:39 PFSH Acute 2 PFSH: Social History Smoking and tobacco/nicotine status: never used tobacco/nicotine Vitals/I&O/Wt Last Vital Signs Temp 97.7 F 01/20/24 20:30 Pulse 96 01/20/24 23:05 Resp 18 01/20/24 20:30 BP 128/64 01/20/24 23:05 Pulse Ox 96 01/20/24 23:05 O2 Del Method Room Air 01/20/24 20:53 01/20/24 01/20/24 01/21/24 14:59 22:59 06:59 Intake Total 1000 / 1000 Balance 1000 / 1000 Weight last 48 hrs Weight 81.647 kg Physical Exam 2 Narrative: General: Alert oriented x3, patient seen laying in bed appearing comfortable. HEENT: Normocephalic, atraumatic, EOMI, breathing room air saturating 96% Cardio: Regular rate rhythm, normal S1-S2, Respiratory: Good bilateral air entry, no wheezes no rhonchi appreciated GI: Abdomen soft, nontender, nondistended, bowel sounds + Extremities: No edema bilateral lower extremities Data 01/20/24 20:48 01/20/24 20:48 Micro: Microbiology 01/20/24 20:54 Blood Culture - Preliminary Blood SPECIMEN COLLECTED 01/20/24 20:48 Blood Culture - Preliminary Blood SPECIMEN COLLECTED A&P Assessment and plan (1) Vomiting: (2) Acute on chronic renal insufficiency: (3) Dehydration: (4) Nausea: (5) Gastroenteritis: Plan #CHRIST, baseline creatinine normal to 1.0. # Recent gastroenteritis, self resolved #Generalized weakness #Diabetes mellitus type 2, insulin-dependent #Hypertension ? CHRIST most likely secondary to prerenal cause due to dehydration. Patient has had significant nausea vomiting last few days and has had mild diarrhea as well which have both still present. After they had the above symptoms. Patient given normal saline bolus in ER. Will place on normal saline 125 cc/h. ? Continue on consistent carbohydrate diet. ? Hold basal insulin and glargine 72 units. ? Will place on Accu-Cheks every 6 hours for now. If blood glucose trend going higher will order low-dose intensity sliding scale insulin. ? Home medications need to be confirmed. Hold glimepiride, lisinopril, meloxicam at this time. ? Will check CT abdomen pelvis without contrast ? Check urine drug screen ? UA done in ER however not a clean sample. Leuk esterase 2+, ketones 1+. I would repeat at this time. Patient does not have any urinary symptoms. She did give 1 dose of Rocephin in the ER. I will hold off on further antibiotics at this time. Full code DVT prophylaxis: Heparin SQ twice daily Attestations 2 Medical Necessity Statement*: Observation admission for gastroenteritis. Expect less than 48 hours stay. Diagnoses Vomiting R11.10 Acute on chronic renal insufficiency N28.9; N18.9 Dehydration E86.0 Nausea R11.0 Gastroenteritis K52.9
[2024-01-21] VITALS (14 sets, daily range): BP systolic 106–139; BP diastolic 47–88; PULSE 53–89; RESP 16–19; TEMP 36.6–37.1; O2SAT 94–97
[2024-01-21 00:03] LABS: Anion Gap 18.6 (5-19); Chloride 104 mmol/L (98-107); Osmolality Calculated 305 mOsm/kg (285-295); Potassium 5.6 mmol/L (3.5-5.1); Sodium 137 mmol/L (136-145)
--- NOTE | 2024-01-21 00:44 | PC.NURSE ---
Report called to Sophia HENDRICKSON on [place]. All questions and concerns addressed at time of report.
--- NOTE | 2024-01-21 01:24 | ECG_ITS ---
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 Measurements Intervals [place] Rate: 86 P: 64 FL: 173 QRS: -64 QRSD: 105 T: 71 QT: 391 QTc: 469 Interpretive Statements SINUS RHYTHM INCOMPLETE RIGHT BUNDLE BRANCH BLOCK [90+ ms QRS DURATION, TERMINAL R IN V1/V2, 40+ ms S IN I/aVL/V4/V5/V6] LEFT ANTERIOR FASCICULAR BLOCK [QRS AXIS <= -45, QR IN I, RS IN II] POSSIBLE ANTERIOR MYOCARDIAL INFARCTION , OF INDETERMINATE AGE [30 ms Q WAVE IN V3/V4, OR R < 0.2 mV IN V4] Compared to ECG 09/10/2022 11:33:24 Incomplete right bundle-branch block now present Left anterior fascicular block now present Myocardial infarct finding now present T-wave abnormality no longer present Electronically Signed On 01-21-2024 19:42:26 CDT by Yrn Humphrey M.D. [id number]
[2024-01-21] MEDS: sodium chloride 0.9% 1,000 ML 125 ML IV ×3 (01:36→21:28)
[2024-01-21 02:20] LABS: Anion Gap 15.5 (5-19); Blood Urea Nitrogen 60 mg/dL (8-23); Calcium 8.6 mg/dL (8.5-10.5); Carbon Dioxide 19 mmol/L (22-29); Chloride 107 mmol/L (98-107); Glucose 123 mg/dL (65-115); Osmolality Calculated 300 mOsm/kg (285-295); Potassium 5.5 mmol/L (3.5-5.1); Sodium 136 mmol/L (136-145)
[2024-01-21 02:22] LABS: Creatinine Clr Calc Pharmacy 29.3745
[2024-01-21 02:35] LABS: Estmated Average Glucose 212
[2024-01-21 03:20] LABS: Procalcitonin 0.06 ng/mL (0-0.5)
[2024-01-21] MEDS: insulin regular-human 10 UNIT in SYRINGE 1 EACH IVP (04:30)
[2024-01-21 04:31] LABS: Glucose Point of Care 111 mg/dL (70-110)
[2024-01-21] MEDS: dextrose 10% 250 ML 1000 ML IV (04:31)
[2024-01-21] MEDS: calcium gluconate 0.1 gm/mL 10% SDV 10mL 1 GM IVP (04:56)
[2024-01-21 05:00] LABS: Glucose Point of Care 223 mg/dL (70-110)
[2024-01-21 05:37] LABS: Anion Gap 15.7 (5-19); Blood Urea Nitrogen 53 mg/dL (8-23); Calcium 8.2 mg/dL (8.5-10.5); Carbon Dioxide 17 mmol/L (22-29); Chloride 108 mmol/L (98-107); Glucose 222 mg/dL (65-115); Magnesium 1.9 mg/dL (1.7-2.3); Osmolality Calculated 303 mOsm/kg (285-295); Potassium 4.7 mmol/L (3.5-5.1); Sodium 136 mmol/L (136-145)
[2024-01-21 05:41] LABS: Add Urine Microscopic? YES; Bilirubin Urine Neg (Negative); Blood Urine Neg (Negative); Glucose Urine UA Trace (Normal); Ketones Urine Negative (Negative); Leukocyte Esterase Urine 1+ (Negative); Nitrate Urine Negative (Negative); Protein Urine Neg (Negative); Specific Gravity, Urine 1.015 (1.005-1.030); Urine Appearance Clear (CLEAR); Urine Color Yellow (Yellow); Urobilinogen Urine Neg (Negative); pH Urine 5 (5-7)
[2024-01-21 05:42] LABS: Add Urine Culture? No; Bacteria Urine TRACE /hpf; Mucus Urine 1+ /hpf; RBC Urine 0-4 /hpf (0-2); Squamous Epithelial Cell Urine 0-4 /hpf (0-5)
[2024-01-21 06:26] LABS: Glucose Point of Care 139 mg/dL (70-110)
[2024-01-21] MEDS: heparin 5,000 unit/mL INJ 1 mL 5000 UNIT SUBCUT ×2 (08:34→21:28)
--- NOTE | 2024-01-21 09:03 | CTR_ITS ---
PROCEDURE INFORMATION: Exam: CT Abdomen And Pelvis Without Contrast Exam date and time: 01/21/2024 9:54 AM Age: 83 years old Clinical indication: Condition or disease; Kidney or ureter condition; Acute renal insufficiency; Additional info: Eric, recent gastroenteritis TECHNIQUE: Imaging protocol: Computed tomography of the abdomen and pelvis without contrast. Radiation optimization: All CT scans at this facility use at least one of these dose optimization techniques: automated exposure control; mA and/or kV adjustment per patient size (includes targeted exams where dose is matched to clinical indication); or iterative reconstruction. COMPARISON: CT chest abdpel w/*[id number] 12/12/2022 3:51 PM RADIATION DOSE METRICS: Total DLP (mGy-cm): 671.97 FINDINGS: Lungs: There is linear atelectasis and/or scarring at the lung bases. Liver: There is mild fatty infiltration of the liver. The liver otherwise has a normal noncontrast appearance. Gallbladder and biliary ducts: There are gallstones within the gallbladder. No pericholecystic inflammatory changes noted. Pancreas: There is haziness to the fat adjacent to the pancreatic head. This could represent a degree of pancreatitis. Recommend clinical correlation and correlation with laboratory values. Spleen: Normal. No splenomegaly. Adrenal glands: The right adrenal gland is normal. There is a low-density nodule involving the left adrenal gland which measures a proximally 39 Hounsfield units in density. This nodule measures 1.5 cm in size (previously 1.4 cm). Kidneys and ureters: Normal. No hydronephrosis. Stomach and bowel: There are scattered colonic diverticula. No bowel wall thickening is identified. Appendix: No evidence of appendicitis. Intraperitoneal space: Unremarkable. No free air. No significant fluid collection. Vasculature: The aorta is normal in caliber. There is calcified plaque involving the aorta and its branch vessels. Lymph nodes: Unremarkable. No enlarged lymph nodes. Urinary bladder: There is mild wall thickening involving the urinary bladder. This is a nonspecific finding but can be seen with a cystitis or could be related to the decompressed nature of the bladder. Reproductive: Unremarkable as visualized. Bones/joints: Unremarkable. No acute fracture. Soft tissues: Unremarkable. CT/CT kidney stone [id number] IMPRESSION: 1. Cholelithiasis. 2. Stable left adrenal nodule. 3. Possible pancreatitis involving the pancreatic head. Please correlate clinically and with laboratory values. 3. Please see above comments for additional details. COMMENTS: Consistent with the [employer]'s Incidental Findings Committee white paper (J Am Paras Radiol 2017): For any incidental adrenal lesion greater than or equal to 1 cm but less than or equal to 4 cm classified in this report as benign, likely benign, or containing fat (including classification as an adenoma or myelolipoma), no follow-up imaging is recommended per consensus recommendations based on imaging criteria. Further lab evaluation could be pursued if warranted based on clinical findings.
[2024-01-21 09:22] LABS: Creatine Phosphokinase 82 U/L (26-192)
[2024-01-21 10:49] LABS: Glucose Point of Care 165 mg/dL (70-110)
[2024-01-21 17:10] LABS: Glucose Point of Care 263 mg/dL (70-110)
[2024-01-21 19:10] LABS: Glucose Point of Care 294 mg/dL (70-110)
[2024-01-21 21:16] LABS: Glucose Point of Care 239 mg/dL (70-110)
[2024-01-21] MEDS: insulin lispro 100 unit/1 mL SUBCUT (21:28)
[2024-01-21] MEDS: ondansetron 2 mg/ML SDV 2 mL 4 MG IVP (21:28)
[2024-01-21] MEDS: insulin glargine 100 units/1 mL 30 UNIT SUBCUT (22:00)
--- NOTE | 2024-01-21 22:17 | P.PN_ITS ---
Subjective 2 Subjective: So far without additional vomiting. Has been generally weak, yesterday she fell down the floor and could not get up on her own. Vitals/I&O/Wt Last Vital Signs Temp 98.3 F 01/21/24 19:59 Pulse 64 01/21/24 19:59 Resp 17 01/21/24 19:59 BP 132/88 01/21/24 19:59 Pulse Ox 96 01/21/24 19:59 O2 Del Method Room Air 01/21/24 19:59 01/21/24 01/21/24 01/21/24 06:59 14:59 22:59 Intake Total 490.1 / 1490.1 1060 / 1060 1100 / 2160 Output Total 100 / 100 Balance 390.1 / 1390.1 1060 / 1060 1100 / 2160 Weight last 48 hrs Weight 79.464 kg Weight 81.647 kg Physical Exam 2 Narrative: Accompanied by her son. Const: COMMON NORMALS: patient oriented x3 and alert GENERAL APPEARANCE: c ooperative and frail appearing ORIENTATION/CONSCIOUSNESS: Yes awake HENMT: COMMON NORMALS: oropharynx normal Neck/C-Spine: COMMON NORMALS: no JVD Resp: COMMON NORMALS: normal respiratory effort and clear to auscultation bilaterally AUSCULTATION: clear to auscultation bilaterally Cardio: COMMON NORMALS: no JVD, regular rhythm, S1 normal heart sound present, S2 normal heart sound present and No murmurs present (Cardio) RHYTHM: regular rhythm HEART SOUNDS: S1 normal heart sound present and S2 normal heart sound present GI: COMMON NORMALS: Normal to inspection, nondistended, normoactive bowel sounds present, Soft to palpation and non-tender PALPATION: Yes Soft to palpation Extremity: COMMON NORMALS: no joint enlargement and no pedal edema Neuro: COMMON NORMALS: patient oriented x3 and moves all extremities S ENSORIUM/ORIENTATION: Yes alert Skin: COMMON NORMALS: no rashes or lesions noted GENERAL SKIN EXAM: no rashes or lesions noted Data 01/20/24 20:48 01/21/24 04:50 Micro: Microbiology 01/20/24 20:54 Blood Culture - Preliminary Blood NEGATIVE TO DATE 01/20/24 20:48 Blood Culture - Preliminary Blood NEGATIVE TO DATE A&P Assessment and plan (1) Vomiting: (2) Acute on chronic renal insufficiency: (3) Dehydration: (4) Nausea: (5) Gastroenteritis: Plan #CHRIST, baseline creatinine normal to 1.0. CT abdomen pelvis renal protocol obtained, no obstructive uropathy. Possibly prerenal with nausea vomiting recently. She does also take meloxicam, lisinopril, glimepiride. Hold these medications. Discussed with her to discontinue meloxicam. Reviewed CBC, chemistry, UA. Discussed with case mgr. Will decrease the rate of IV fluid to 75 mill per hour, monitor for risk of fluid overload with IV infusion. # Recent gastroenteritis, self resolved On CT scan finding of possible pancreatitis. Assess lipase. Recently with nausea and vomiting. #Generalized weakness She has been generally very weak, yesterday fell to the floor and could not get up on her own. Reviewed CBC, CMP, UA. Recently with nausea vomiting, poor oral intake. Patient. Continues on IV rehydration. With CHRIST, possibility of metabolic contribution. Reviewed magnesium is okay. CK reviewed as well, recheck. At risk for rhabdomyolysis with statin and fenofibrate. Discussed with her and her son, pending PT assessment. Discussed with PT, case management. Discussed consideration of rehabilitation at SNF, she would not want to go to SNF rehabilitation, wants to return home. Discussed with her risk of fall, injury, especially if she is by herself at home. Family is nearby, but not at her house. Discussing with family they may try to take turns to stay with her, additionally they request for home health. They are also in the process of obtaining a medic alert button for her. Per discussion with her son she does have a walker at home, but it appears she does not reliably use it. Encouraged her to use the walker at all times. #Diabetes mellitus type 2, insulin-dependent Reviewed A1c, 9. Continue insulin Lantus. Sliding scale. Continue Accu-Chek assessments. Consistent carb diet. #Hypertension ? UA done in ER however not a clean sample. Leuk esterase 2+, ketones 1+. I would repeat at this time. Patient does not have any urinary symptoms. She did give 1 dose of Rocephin in the ER. I will hold off on further antibiotics at this time. Full code DVT prophylaxis: Heparin SQ twice daily Attestations 2 Medical Necessity Statement*: Continue hospitalization for additional assessment management of CHRIST, possible pancreatitis, generalized weakness is a lady with diabetes, advanced age. Post discharge planning. and High MDM includes amount and/or complexity of data reviewed/ordered [ resulted lab(s)/test(s), ordered lab(s)/test(s), independent historian and other healthcare professional discussion] and described risk of complication, morbidity or mortality of management as documented Diagnoses Vomiting R11.10 Acute on chronic renal insufficiency N28.9; N18.9 Dehydration E86.0 Nausea R11.0 Gastroenteritis K52.9
[2024-01-21 23:51] LABS: Glucose Point of Care 138 mg/dL (70-110)
[2024-01-22] VITALS: BP 110/53; PULSE 64; RESP 17; TEMP 37.2; O2SAT 98
[2024-01-22 00:28] LABS: Lipase 32 U/L (13-60)
[2024-01-22 03:40] LABS: Glucose Point of Care 96 mg/dL (70-110)
[2024-01-22 04:00] VITALS: BP 116/56; PULSE 58; RESP 17; TEMP 36.9; O2SAT 97
[2024-01-22 05:16] LABS: Basophils % 0.6 %; Eosinophils # 0.1 10^3/uL (0.0-0.8); Eosinophils % 2.7 %; Hematocrit 32.4 % (36-47); Lymphocytes # 1.6 10^3/uL (0.8-4.8); Lymphocytes % 30.5 %; Mean Corpuscular HGB Conc 30.6 g/dL (30-55); Mean Corpuscular Hemoglobin 27.7 pg (27-33); Mean Corpuscular Volume 90.5 fl (85-98); Mean Platelet Volume 10.4 fL (7.4-10.4); Monocytes # 0.6 10^3/uL (0.2-0.9); Monocytes % 10.9 %; Neutrophils # 2.88 10^3/uL (1.8-7.7); Neutrophils % 54.9 %; Nucleated Red Blood Cells % 0 %; Platelet Count 326 10^3/cmm (157-399); Red Blood Count 3.58 10^6/uL (3.85-5.65); Red Cell Distribution Width 13.2 % (12.1-15.1); White Blood Count 5.24 10^3/uL (3.29-11.43)
[2024-01-22 05:43] LABS: Lipase 31 U/L (13-60)
[2024-01-22 05:45] LABS: Alanine Aminotransferase 13 U/L (0-33); Albumin Level 3.4 g/dL (3.5-5.2); Alkaline Phosphatase 26 U/L (35-105); Anion Gap 14.2 (5-19); Aspartate Amino Transferase 15 U/L (0-32); Blood Urea Nitrogen 33 mg/dL (8-23); Calcium 8.4 mg/dL (8.5-10.5); Carbon Dioxide 22 mmol/L (22-29); Chloride 110 mmol/L (98-107); Globulin 2.7 g/dL (1.3-4.6); Glucose 93 mg/dL (65-115); Osmolality Calculated 299 mOsm/kg (285-295); Potassium 5.2 mmol/L (3.5-5.1); Sodium 141 mmol/L (136-145); Total Bilirubin 0.3 mg/dL (0.15-1.2); Total Protein 6.1 g/dL (6.6-8.7)
[2024-01-22 05:46] LABS: Creatinine Clr Calc Pharmacy 36.2285
[2024-01-22 06:33] LABS: Glucose Point of Care 103 mg/dL (70-110)
[2024-01-22 07:30] VITALS: BP 111/60; PULSE 64; RESP 17; TEMP 36.7; O2SAT 98
[2024-01-22] MEDS: insulin glargine 100 units/1 mL 30 UNIT SUBCUT (08:24)
[2024-01-22] MEDS: heparin 5,000 unit/mL INJ 1 mL 5000 UNIT SUBCUT (08:25)
[2024-01-22 10:40] LABS: Glucose Point of Care 102 mg/dL (70-110)
[2024-01-22 11:25] VITALS: BP 117/59; PULSE 48; RESP 17; TEMP 36.9; O2SAT 98
[2024-01-22] MEDS: ondansetron 2 mg/ML SDV 2 mL 4 MG IVP (11:25)
--- NOTE | 2024-01-22 11:53 | P.DS_ITS ---
Discharge Providers Date of Admission: 01/21/24 00:39 Date of Discharge: January 22, 2024 Attending Provider at Admission: Cyn Easton MD Attending Provider at Discharge: Dante Lewis Primary Care Provider: Toan Espinoza DO Diagnoses at Discharge Discharge Diagnosis (1) Vomiting: Status: Acute (2) Acute on chronic renal insufficiency: Status: Acute (3) Dehydration: Status: Acute (4) Nausea: Status: Acute (5) Gastroenteritis: Status: Inactive Reason for Visit Reason for Visit: Weakness Brief History: Danelle Elaine is a 83 year old female With past medical history of diabetes, hypertension, hyperlipidemia presented to the hospital with complaint of nausea vomiting that has been going on for the last 3 to 4 days. She says she has developed generalized weakness. Prior to the nausea vomiting she did have some diarrhea however however also has resolved at this point. She ate meat prior that was frozen store-bought and immediately thereafter developed symptoms which self resolved within 24 hours. She did lay on the floor secondary to weakness for greater than 12 to 15 hours. Denies any gross abdominal pain patient is alert oriented x 3. She says she also had a fall recently however did not injure herself or hit her head. Did not lose consciousness. Her main complaint at this time is weakness. Patient's sister and daughter at bedside. ER course 136/68, saturating 93% on room air, respirate 18, pulse 90, temperature 97.7. Chest x-ray does not show any acute process no obvious infiltrates, no pneumothorax, no cardiomegaly. Abdominal x-ray nonspecific bowel gas pattern. Initial labs obtained show some hemoconcentrateion, platelets 402, creatinine 1.6, BUN 67. Lactic acid 1.2. C-reactive protein 8.1. Liver enzymes normal. Previously patient's creatinine has been normal range. Home medications need to be confirmed but if prior working list does show meloxicam, lisinopril, glargine, Trulicity. hyperkalemia at admission, K 5.6 Hospital Course Hospital Course She was treated with IV hydration for dehydration, meloxicam, lisinopril, glimepiride with held. CT abdomen pelvis was obtained to assess for obstructive uropathy which was not seen. It incidentally showed findings of possible pancreatitis, lipase was obtained, lipase results were normal. With recent gastroenteritis, medics were provided, however, her nausea and vomiting symptoms had resolved. As discussed with her and family pancreas findings may have been related to multiple inflammation possibly secondary to gastritis, possibly NSAID related versus food related as was considered on admission. She has had no diarrhea. She has been tolerating oral intake. She is asked to discontinue and avoid NSAIDs at discharge, hold lisinopril and reduce glimepiride dose until kidney function can be reassessed, and safety of resuming these medications ascertained. With generalized weakness on presentation likely multifactorial due to the above factors. CK was checked as well and was normal. No sign of rhabdomyolysis, although may be at risk with atorvastatin and fenofibrate. Her symptoms did improve. In case of return of weakness consider de-escalation of statin keeping possibility of statin myopathy in mind. Additional workup did reveal that she would benefit from long-term optimization of diabetes control. A1c is found to be 9. She is continued on Lantus. As noted glimepiride dose is temporarily decreased to mitigate risk of hypoglycemia while recovering from CHRIST. In ER UA with some 2+ leukocyte esterase, received a dose of ceftriaxone, but without urinary symptoms, with only 5-10 WBC, antibiotics were not continued. Blood cultures so far negative, please follow-up final results. With regards to discharge planning, we discussed consideration of going to senior living facility for further rehabilitation, however, she was quite certain she would not want to do that, and her and her family made arrangements for her to be able to return home with them taking turns to supervise her at home, she additionally is having home health arranged, and also has just received her medic alert button. She is instructed to utilize her walker. Physical Exam Narrative: She is awake, in better spirits, appears much stronger today. Accompanied by multiple family members. Requests to be discharged home. Const: COMMON NORMALS: patient oriented x3 and alert GENERAL APPEARANCE: cooperative and frail appearing ORIENTATION/CONSCIOUSNESS: Yes awake HENMT: COMMON NORMALS: oropharynx normal Neck/C-Spine: COMMON NORMALS: no JVD Resp: COMMON NORMALS: normal respiratory effort and clear to auscultation bilaterally AUSCULTATION: clear to auscultation bilaterally Cardio: COMMON NORMALS: no JVD, regular rhythm, S1 normal heart sound present, S2 normal heart sound present and No murmurs present (Cardio) RHYTHM: regular rhythm HEART SOUNDS: S1 normal heart sound present and S2 normal heart sound present GI: COMMON NORMALS: Normal to inspection, nondistended, normoactive bowel sounds present, Soft to palpation and non-tender PALPATION: Yes Soft to palpation Extremity: COMMON NORMALS: no joint enlargement and no pedal edema Neuro: COMMON NORMALS: patient oriented x3 and moves all extremities SENSORIUM/ORIENTATION: Yes alert Skin: COMMON NORMALS: no rashes or lesions noted GENERAL SKIN EXAM: no rashes or lesions noted Discharge Data Studies Completed and Pending Completed Studies During Hospitalization Category Date Time Status CT kidney stone [id number] Routine Cat Scan 01/21/24 09:03 Completed XR acute abdomen series [id number] Stat Exams 01/20/24 20:35 Completed Pending at discharge Category Date Time Status Blood Culture Stat Lab 01/20/24 20:54 Results Comprehensive Metabolic Panel AM LABS Lab 01/23/24 04:00 Ordered Comprehensive Metabolic Panel AM LABS Lab 01/24/24 04:00 Ordered Radiology Impressions Chest/Abdomen X-ray 01/20/24 20:35 IMPRESSION: 1. There is blunting of the costophrenic angles. This may represent pleural thickening and/or scarring. Small pleural effusions cannot be excluded. 2. Moderate stool burden. Abdomen/Pelvis CT 01/21/24 09:03 IMPRESSION: 1. Cholelithiasis. 2. Stable left adrenal nodule. 3. Possible pancreatitis involving the pancreatic head. Please correlate clinically and with laboratory values. 3. Please see above comments for additional details. COMMENTS: Consistent with the [employer]'s Incidental Findings Committee white paper (J Am Paras Radiol 2017): For any incidental adrenal lesion greater than or equal to 1 cm but less than or equal to 4 cm classified in this report as benign, likely benign, or containing fat (including classification as an adenoma or myelolipoma), no follow-up imaging is recommended per consensus recommendations based on imaging criteria. Further lab evaluation could be pursued if warranted based on clinical findings. Laboratory Results WBC 5.24 10^3/uL (3.29-11.43) 01/22/24 04:24 RBC 3.58 10^6/uL (3.85-5.65) L 01/22/24 04:24 Hgb 9.90 g/dL (11.27-16.99) L 01/22/24 04:24 Hct 32.4 % (36-47) L 01/22/24 04:24 MCV 90.5 fl (85-98) 01/22/24 04:24 MCH 27.7 pg (27-33) 01/22/24 04:24 MCHC 30.6 g/dL (30-55) 01/22/24 04:24 RDW 13.2 % (12.1-15.1) 01/22/24 04:24 Plt Count 326 10^3/cmm (157-399) 01/22/24 04:24 MPV 10.4 fL (7.4-10.4) 01/22/24 04:24 Neut % (Auto) 54.9 % 01/22/24 04:24 Lymph % (Auto) 30.5 % 01/22/24 04:24 [place] % (Auto) 10.9 % 01/22/24 04:24 Eos % (Auto) 2.7 % 01/22/24 04:24 Baso % (Auto) 0.6 % 01/22/24 04:24 Neut # (Auto) 2.88 10^3/uL (1.8-7.7) 01/22/24 04:24 Lymph # (Auto) 1.6 10^3/uL (0.8-4.8) 01/22/24 04:24 [place] # (Auto) 0.6 10^3/uL (0.2-0.9) 01/22/24 04:24 Eos # (Auto) 0.1 10^3/uL (0.0-0.8) 01/22/24 04:24 Baso # (Auto) 0.0 10^3/uL (0.0-0.1) 01/22/24 04:24 Nucleated RBC % (auto) 0 % 01/22/24 04:24 Nucleated RBCs # 0.0 /100WBC 01/22/24 04:24 Sodium 141 mmol/L (136-145) 01/22/24 04:24 Potassium 5.2 mmol/L (3.5-5.1) H 01/22/24 04:24 Chloride 110 mmol/L (98-107) H 01/22/24 04:24 Carbon Dioxide 22 mmol/L (22-29) 01/22/24 04:24 Anion Gap 14.2 (5-19) 01/22/24 04:24 BUN 33 mg/dL (8-23) H 01/22/24 04:24 Creatinine 1.2 mg/dL (0.5-0.9) H 01/22/24 04:24 GFR Calculation Not Reportable 01/22/24 04:24 Glucose 93 mg/dL (65-115) 01/22/24 04:24 POC Glucose 102 mg/dL (70-110) 01/22/24 10:35 Estimat Average Glucose 212 01/21/24 01:49 Hemoglobin A1c 9.0 % (4.0-6.0) H 01/21/24 01:49 Calculated Osmolality 299 mOsm/kg (285-295) H 01/22/24 04:24 Lactic Acid 1.2 mmol/L (0.5-2.2) 01/20/24 20:48 Calcium 8.4 mg/dL (8.5-10.5) L 01/22/24 04:24 Magnesium 1.9 mg/dL (1.7-2.3) 01/21/24 04:50 Total Bilirubin 0.3 mg/dL (0.15-1.2) 01/22/24 04:24 AST 15 U/L (0-32) 01/22/24 04:24 ALT 13 U/L (0-33) 01/22/24 04:24 Alkaline Phosphatase 26 U/L (35-105) L 01/22/24 04:24 Creatine Kinase 82 U/L (26-192) 01/21/24 04:50 C-Reactive Protein 8.1 mg/L (0.0-4.9) H 01/20/24 20:48 Total Protein 6.1 g/dL (6.6-8.7) L 01/22/24 04:24 Albumin 3.4 g/dL (3.5-5.2) L 01/22/24 04:24 Globulin 2.7 g/dL (1.3-4.6) 01/22/24 04:24 Lipase 31 U/L (13-60) 01/22/24 04:24 Procalcitonin 0.06 ng/mL (0-0.5) 01/21/24 01:49 Urine Color Yellow (Yellow) 01/21/24 04:45 Urine Appearance Clear (CLEAR) 01/21/24 04:45 Urine pH 5 (5-7) 01/21/24 04:45 Ur Specific [place] 1.015 (1.005-1.030) 01/21/24 04:45 Urine Protein Neg (Negative) 01/21/24 04:45 Urine Glucose (UA) Trace (Normal) H 01/21/24 04:45 Urine Ketones Negative (Negative) 01/21/24 04:45 Urine Blood Neg (Negative) 01/21/24 04:45 Urine Nitrate Negative (Negative) 01/21/24 04:45 Urine Bilirubin Neg (Negative) 01/21/24 04:45 Urine Urobilinogen Neg mg/dL (Negative) 01/21/24 04:45 Ur Leukocyte Esterase 1+ (Negative) H 01/21/24 04:45 Urine RBC 0-4 /hpf (0-2) H 01/21/24 04:45 Urine WBC 5-10 /hpf (0-5) H 01/21/24 04:45 Ur Squamous Epith Cells 0-4 /hpf (0-5) H 01/21/24 04:45 Amorphous Sediment Not Reportable 01/21/24 04:45 Urine Bacteria Trace /hpf (NONE) 01/21/24 04:45 Urine Mucus 1+ /hpf 01/21/24 04:45 Vitals Last Vital Signs Temp 98.4 F 01/22/24 11:25 Pulse 48 L 01/22/24 11:25 Resp 17 01/22/24 11:25 BP 117/59 01/22/24 11:25 Pulse Ox 98 01/22/24 11:25 O2 Del Method Room Air 01/22/24 11:25 Discharge Plan Discharge Patient Disposition: Home Health Service Condition: Stable Prescriptions: New ondansetron 4 mg tablet,disintegrating 4 mg PO Q8H 5 Days Qty: 15 0RF pantoprazole 40 mg tablet,delayed release (DR/EC) 40 mg PO DAILY 42 Days Qty: 42 0RF 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 (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 See Rx Instructions .Route .MEDSUPPLY Qty: 1 0RF Rx Instructions: As directed atorvastatin 40 mg tablet 40 mg PO DAILY insulin glargine [Lantus U-100 Insulin] 100 unit/mL solution 65 unit SUBCUT BID fenofibrate nanocrystallized 145 mg tablet 145 mg PO DAILY Changed glimepiride 4 mg tablet 2 mg PO DAILY Qty: 1 0RF Rx Instructions: Dose change only Discontinued meloxicam 7.5 mg tablet 7.5 mg PO DAILY Qty: 30 1RF lisinopril 20 mg tablet 20 mg PO DAILY Trulicity 0.75 mg/0.5 mL pen injector 0.75 mg SUBCUT Q7D Rx Instructions: On Friday Discharge Orders: Discharge Order (Routine); Ordered 01/22/24 Ordered By: Dante Lewis Referrals: [facility] [Outside] Toan Espinoza, [Primary Care Provider] - (We have notified your physician's clinic of the need for a follow-up appointment to be scheduled. If you have not heard from them within the next 2 business days, please call them directly. ) Discharge Diet: Diabetic Patient Instructions: Ondansetron (By mouth), Pantoprazole (By mouth), Gastritis (GEN), Acute Kidney Injury (GEN), Fall Prevention (GEN) Activity Restrictions/Additional Instructions: Follow-up with your primary provider for reassessment of kidney function after kidney injury, as well as reassessment of potassium. Reduce potassium rich foods and hold lisinopril for now due to mild elevation of potassium. Please hold Trulicity for now until your kidney function is reassessed as it can contribute to acute kidney injury. To avoid risk of hypoglycemia while your kidneys are recovering please reduce dose of glimepiride down to 2 mg. Do not resume or increase these medications until your primary provider says it is safe to do so. Please stop meloxicam and avoid any NSAIDs due to risk of kidney injury, risk of gastritis/stomach inflammation and ulcers. As discussed may take Tylenol if needed for aches and pains. Please follow-up with your primary doctor regarding diabetes, it would benefit from additional improvement and control. A1c is 9. Please continue arrangements for home health and physical therapy, use your walker at all times. And carried a medic alert button with you at all times in case you need to call for help. Please have family members stay with you over the next several days at least to make sure you are recovering and functioning well, contact case management team at the hospital or your primary provider's office in case you reconsider about rehabilitation at senior living facility. Seek medical attention in case of any worsening or new concerning symptoms. Discharge Attestations Time Spent in Discharge Care*: greater than 30 min Quality Metrics Clinical Quality Measures [ No reported AMI, CVA or VTE this stay] Coding Level of Care Code 36767 Total time (in minutes) for Discharge: 55 Diagnoses Vomiting R11.10 Acute on chronic renal insufficiency N28.9; N18.9 Dehydration E86.0 Nausea R11.0 Gastroenteritis K52.9
[2024-01-22 13:35] VITALS: BP 117/59; PULSE 48; RESP 17; TEMP 36.9; O2SAT 98
== END 2024-01-22 13:36 | disposition home health service (06) ==
LOC: ER 22:01 → MEDSURG 01-21 00:40
PROVIDERS: Emergency Medicine; Admitting Provider Internal Medicine; Emergency Provider Physician Assistant; PCP Electrodiagnostic Medicine; Visit Provider Internal Medicine
DX: K52.9 Noninfective gastroenteritis and colitis, unspecified (principal); I12.9 Hypertensive chronic kidney disease with stage 1 through stage 4 chronic kidney disease, or unspecified chronic kidney disease; N18.9 Chronic kidney disease, unspecified; E86.0 Dehydration
CPT/HCPCS: 36415; 36416; 74022; 74176; 80048; 80053; 81001; 82550; 82962; 83036; 83605; 83690; 83735; 84145; 85025; 86140; 87040; 93005; 96372; 96374; 96375; 99285; G0378; J0612; J0696; J1644; J1815; J2405; J7030; J7799

== ENCOUNTER → 2024-04-29 10:01 | Outpatient (BNVA) | payer MEDICARE, MEDICAID, SELFPAY | PROVIDERS: PCP Electrodiagnostic Medicine; Visit Provider Podiatrist Foot & Ankle Surgery | DX: S92.414A Nondisplaced fracture of proximal phalanx of right great toe, initial encounter for closed fracture (principal); W10.8XXA Fall (on) (from) other stairs and steps, initial encounter; R23.8 Other skin changes | CPT/HCPCS: 99203 ==

== ENCOUNTER → 2024-05-07 12:52 | Outpatient (BNVA) | payer MEDICARE, MEDICAID, SELFPAY | PROVIDERS: PCP Electrodiagnostic Medicine; Visit Provider Podiatrist Foot & Ankle Surgery | DX: S92.414D Nondisplaced fracture of proximal phalanx of right great toe, subsequent encounter for fracture with routine healing; W10.8XXD Fall (on) (from) other stairs and steps, subsequent encounter; R23.8 Other skin changes | CPT/HCPCS: 73630; 99213 ==

== ENCOUNTER → 2024-06-07 13:05 | Outpatient (BNVA) | payer MEDICARE, MEDICAID, SELFPAY | PROVIDERS: PCP Electrodiagnostic Medicine; Visit Provider Podiatrist Foot & Ankle Surgery | DX: S92.414D Nondisplaced fracture of proximal phalanx of right great toe, subsequent encounter for fracture with routine healing; W10.8XXD Fall (on) (from) other stairs and steps, subsequent encounter | CPT/HCPCS: 73630; 99213 ==

== ENCOUNTER 2025-06-05 14:08 | Emergency (ER) | payer MEDICARE, MEDICAID, SELFPAY ==
--- NOTE | 2025-06-05 14:12 | CTR_ITS ---
PROCEDURE INFORMATION: Exam: CT Abdomen And Pelvis With Contrast Exam date and time: 06/05/2025 3:18 PM Age: 85 years old Clinical indication: Nausea and vomiting TECHNIQUE: Imaging protocol: Computed tomography of the abdomen and pelvis with contrast. Radiation optimization: All CT scans at this facility use at least one of these dose optimization techniques: automated exposure control; mA and/or kV adjustment per patient size (includes targeted exams where dose is matched to clinical indication); or iterative reconstruction. Contrast material: OMNI 350; Contrast volume: 100 ml; Contrast route: INTRAVENOUS (IV); COMPARISON: CT kidney stone [id number] 01/21/2024 9:54 AM RADIATION DOSE METRICS: Total DLP (mGy-cm): 656.43 FINDINGS: Lungs: Lung bases are clear. No pleural effusion. Liver: Normal. No mass. Gallbladder and biliary ducts: Multiple gallstones are noted in the gallbladder but the gallbladder does not appear inflamed and demonstrates normal wall thickness. Pancreas: Normal. No ductal dilation. Spleen: Normal. No splenomegaly. Adrenal glands: Normal. No mass. Kidneys and ureters: Normal. No hydronephrosis. Stomach and bowel: Multiple diverticula involve the sigmoid colon. There is no sign of diverticulitis. There is prominent wall thickening involving the entire duodenal as well as most of the jejunum. I see no bowel distension however. Appendix: No evidence of appendicitis. Intraperitoneal space: Unremarkable. No free air. No significant fluid collection. Vasculature: Unremarkable. No abdominal aortic aneurysm. Lymph nodes: Unremarkable. No enlarged lymph nodes. Urinary bladder: Unremarkable as visualized. Reproductive: Unremarkable as visualized. Bones/joints: Unremarkable. No acute fracture. Soft tissues: Unremarkable. CT/CT abdomen pelvis w con* [id number] IMPRESSION: 1. Segmental wall thickening involving the proximal small bowel of uncertain etiology. Considerations would include acute enteritis, celiac disease. 2. Cholelithiasis 3. Sigmoid diverticulosis
[2025-06-05 14:13] VITALS: BP 183/94; PULSE 77; RESP 17; TEMP 36.5; O2SAT 100; BMI 29.2
--- OUTSIDE RECORDS SUMMARY | 2025-06-05 14:14 | XMS_ITS ---
Author Organization Unknown Medications Date Medication Dosage DosageUnit StartDate StopDate StopReason Active DoseQuantity DoseUnit Dispense DispenseUnit Refills NdcCode DrugCode PharmacyId IsPrescription MappedMedication Srcstatus Custom 05/09 12:00 :00 AM freestyle yamilteh 3 plus sensor device 3.49267 0 1 3.769977 11 [id number] P ACTIVE 05/17 12:00 :00 AM freestyle yamileth 2 plus sensor 2.94471 0 1 2.596666 11 P ACTIVE 2024 12:00 :00 AM techlite pen needle 31 gauge x 5/16 100.000 000 04/12/2025 12:00:00 AM 1 100.98435 0 1 [id number] [facility] P ACTIVE 2024 12:00 :00 AM lantus solostar u-100 insulin 100 unit/ml (3 ml) subcutaneou s pen 30.0000 00 04/03/2025 12:00:00 AM 1 30.612310 5 [id number] 21 900 [id number] [facility] P ACTIVE 2024 12:00 :00 AM bd ultra-fine mini pen needle 31 gauge x 3/16 100.000 000 02/07/2025 12:00:00 AM 1 100.85334 0 3 [id number] [facility] P ACTIVE 2024 12:00 :00 AM freestyle yamileth 2 sensor kit 2.58818 0 04/12/2025 12:00:00 AM 1 2.768993 0 [id number] 000 [facility] P ACTIVE 2024 12:00 :00 AM cephalexin 500 mg tablet 21.0000 00 04/13/2025 12:00:00 AM 0 21.700434 0 [id number] [facility] [place] 2024 12:00 :00 AM cephalexin 500 mg capsule 21.0000 00 03/30/2025 12:00:00 AM 1 21.517837 0 [id number] 14 701 [id number] [facility] P ACTIVE 05/08 12:00 :00 AM freestyle yamileth 2 sensor kit 2.56477 0 0 2.394856 11 [id number] [facility] [place] 2024 12:00 :00 AM donepezil 5 mg tablet 90.0000 00 03/11/2025 12:00:00 AM 1 90.519267 1 [id number] 14 405 [id number] [facility] P ACTIVE
--- OUTSIDE RECORDS SUMMARY | 2025-06-05 14:14 | XMS_ITS | Data Portability ---
Author Organization [facility] Address [address] [facility] [address] [place] [address] Care Team Providers Care Adult Manager Name Role Phone RADHA SANCHEZ Primary Care Provider Unavailabl e Assessment Encounter Date Assessment Date Assessment LastModified by Organization Details LastModified Time 08/18/2024 08/18/2024 Document scribed by Xiang Arrieta Division Head. I was present during interview and exam. I have reviewed and agree with above documentation. Dr. Radha Sanchez. A Care Coordination Assessment form was filled out as part of this patient's office visit today. Pt brandon, but willing to try HH, as she doesn't want to go to a NH. [email or web address] Not available 08/18/2024 12:38:01 03/30/2025 03/30/2025 Document scribed by Xiang Arrieta Division Head. I was present during interview and exam. I have reviewed and agree with above documentation. Dr. Radha Sanchez. A Care Coordination Assessment form was filled out as part of this patient's office visit today. [email or web address] Not available 03/30/2025 16:34:18 Plan of Treatment Reminders Order Date Submit Date Provider Last Modified By Organization Details Last Modified Time Details Appointments None recorded. Lab hemoglobin A1C/hemoglo bin total, QN, blood 2024 025 [facility], [address], [facility], [place], [address], 13:17:53 CMP, serum or plasma 2024 025 DARRICK [facility], [address], [address], [place], [address], 13:40:18 CBC 2024 025 DARRICK [facility], [address], [address], [place], [address], 13:03:26 thyrotropin , QN, serum or plasma 2024 025 [facility], [address], [address], [place], [address], 5 16:05:11 hemoglobin A1C/hemoglo bin total, QN, blood 2024 [email or web address] [place] [address] [facility], [address], [address], [place], [address], 17:01:54 microalbumi n/creatinin e, mass ratio, urine 2024 025 [facility], [address] [facility] [address], [place], [address], 5 08:44:52 CMP, serum or plasma 2024 [email or web address] [place] [address] [facility], [address], [address], [place], [address], 5 17:01:54 CBC 2024 025 [email or web address] 47 [facility], [address], [address], [place], [address], 5 17:01:54 lipid panel, blood 2024 025 [email or web address] [facility], [address], [address], [place], [address], 5 17:01:54 thyrotropin , QN, serum or plasma 2024 025 [email or web address] 47 [facility], [address], [address], [place], [address], 5 17:01:54 CMP, serum or plasma 2023 024 [facility], [address], [address], [place], [address], 4 14:14:27 CBC 2023 024 [facility], [address], [facility] 1, [place], [address], 4 13:26:52 HbA1c (hemoglobin A1c), blood 2023 024 [facility] ([facility] [address] [place], [address], 4 14:06:09 Referral home health referral - [facility] eval and treat with Home PT to right shoulder and for balance, unsteady gait. 2024 025 [email or web address] [facility], [address] [place] [address], [address], 5 11:08:26 home health referral - [facility] 2024 025 [email or web address] 2 [facility], [address] [place] [address], [address], 5 11:48:32 Procedures None recorded. Surgeries None recorded. Imaging None recorded. Medication Orders cephalexin 500 mg tablet 2024 025 [facility]/Pharmacy #[id number], [address], [facility] [place], [address], 5 05:01:51 donepezil 5 mg tablet 2024 025 [facility]/Pharmacy #[id number], [address], [address], [place], [address], 5 12:48:35 Lantus Solostar U-100 Insulin 100 unit/mL (3 mL) subcutaneou s pen 2024 025 [facility]/Pharmacy #[id number], [address], [address], [place], [address], 5 12:48:34 lisinopril 20 mg tablet 2024 025 [email or web address] 47 [facility]/Pharmacy #[id number], [address], [address], [place], [address], 5 17:01:54 atorvastati n 40 mg tablet 2024 025 [email or web address] 47 [facility]/Pharmacy #[id number], [address], [facility], [place], [address], 5 17:01:54 amoxicillin 875 mg-potassiu m clavulanate 125 mg tablet 2023 024 [email or web address] [facility]/Pharmacy #[id number], [address], [facility] 2, [place], [address], 5 11:50:51 Patient TargetsNo targets recorded. Patient InstructionsNo instructions recorded. Reason for Referral Home Health Referral for Typ e 2 diabetes mellitus [facility] Referring Physician: Radha Sanchez, Family Medicine, Encounter Date: 08/18/2024 Home Health Referral for Rig ht rotator cuff syndrome [facility] eval and treat with Home PT to right shoulder and for balance, unsteady gait. Referring Physician: Radha Sanchez Family Medicine, Encounter Date: 12/15/2024 Results Created Date Observation Date Name Description Value Unit Range Abnormal Flag Note LastModifiedBy Organization Detail LastModifiedTime 05/18/2005/18/2024 CBC WBC 7.5 x10 4.0-10 .5 Not Available [facility] [address], [place], [address], 05/18/2024 13:26:52 05/18/2005/18/2024 CBC RBC 3.91 x10 3.50-5 .50 Not Available [facility] [address] [facility] [address], [place], [address], 05/18/2024 13:26:52 05/18/2005/18/2024 CBC HGB 11.5 g/dL 12.0-1 6.0 low Not Available [facility] [address] [address] [facility] 1, [place], [address], 05/18/2024 13:26:52 05/18/2005/18/2024 CBC HCT 33.5 % 37.0-4 7.0 low Not Available [facility] [address] [facility] [address] [facility] 1, [place], [address], 05/18/2024 13:26:52 05/18/2005/18/2024 CBC MCV 85.6 fL 80.0-9 9.9 Not Available [facility] [address] [facility] [address] [facility] 1, [place], [address], 05/18/2024 13:26:52 05/18/2005/18/2024 CBC MCH 29.4 pg 27.0-3 2.0 Not Available [facility] [address], [place], [address], 05/18/2024 13:26:52 05/18/20 24 05/18/2024 CBC MCHC 34.3 g/dL 32.0-3 6.0 Not Available [facility] [address] [facility] [address], [place], [address], 05/18/2024 13:26:52 05/18/2005/18/2024 CBC RDW 14.4 % 11.5-1 4.5 Not Available [facility] [address] [facility] [address], [place], [address], 05/18/2024 13:26:52 05/18/2005/18/2024 CBC plt 309.8 x10 140.0- 451.0 Not Available [facility] [address] [facility] 1, [place], [address], 05/18/2024 13:26:52 05/18/2005/18/2024 CBC lymphocytes % 27.0 % 20.0-5 0.0 Not Available [facility] [address] [facility] [address], [place], [address], 05/18/2024 13:26:52 05/18/2005/18/2024 CBC granulcytes % 61.2 % 30.0-7 0.0 Not Available [facility] [address] [facility] [address], [place], [address], 05/18/2024 13:26:52 05/18/2005/18/2024 CBC monocytes % 9.6 % 2.0-16 .0 Not Available [facility] [address] [facility] [address], [place], [address], 05/18/2024 13:26:52 05/18/2005/18/2024 CBC granulcytes# 4.6 x10 Not Meme ilable [facility] [address] [facility] [address], [place], [address], 05/18/2024 13:26:52 05/18/2013 0505/18/2024 CBC lymphocytes # 2.0 x10 Not Available [facility] [address] [facility] 1, [place], [address], 05/18/2024 13:26:52 05/18/20 24 05/18/2024 CBC monocytes # 0.7 x10 Not Avai lable [facility] [address] [address] [facility] 1, [place], [address], 05/18/2024 13:26:52 05/18/20 24 05/18/2024 CMP (FEMA LE) glucose 67.0 mg/dL 60.0-9 9.0 Not Available [facility] [address] [facility], [place], [address], 05/18/2024 14:14:27 05/18/2005/18/2024 CMP (FEMA LE) BUN (blood urea nitrogen) 34.0 mg/dL 10.0-2 6.0 high Not Available [facility] [address] [facility], [place], [address], 05/18/2024 14:14:27 05/18/20 24 05/18/2024 CMP (FEMA LE) creatinine (serum) 1.1 mg/dL 0.4-1. 5 Not Available [facility] [address] [facility], [place], [address], 05/18/2024 14:14:27 05/18/20 24 05/18/2024 CMP (FEMA LE) BUN/creatini ne ratio 30.91 ratio Not Available [facility] [address] [facility] [address] [facility] 1, [place], [address], 05/18/2024 14:14:27 05/18/20 24 05/18/2024 CMP (FEMA LE) eGFR calculated 50.3 Not Available [facility] [address] [facility] 1, [place], [address], 05/18/2024 14:14:27 05/18/20 24 05/18/2024 CMP (FEMA LE) total protein 8.0 g/dL 6.0-8. 5 Not Available [facility] [address] [facility] [address] [facility] 1, [place], [address], 05/18/2024 14:14:27 05/18/20 24 05/18/2024 CMP (FEMA LE) total bilirubin 0.4 mg/dL 0.2-1. 3 Not Available [facility] [address] [facility] 1, [place], [address], 05/18/2024 14:14:27 05/18/20 24 05/18/2024 CMP (FEMA LE) albumin 4.6 g/dL 3.5-5. 5 Not Available [facility] [address] [facility] 1, [place], [address], 05/18/2024 14:14:27 05/18/2005/18/2024 CMP (FEMA LE) globulin 3.4 calc Not Available [facility] [address] [facility] 1, [place], [address], 05/18/2024 14:14:27 05/18/20 24 05/18/2024 CMP (FEMA LE) AST (SGOT) 20.0 U/L 0.0-46 .0 Not Available [facility] [address] [facility] 1, [place], [address], 05/18/2024 14:14:27 05/18/2005/18/2024 CMP (FEMA LE) altv (SGPT) 14.0 U/L 13.0-6 9.0 normal Not Available [facility] [address] [facility] 1, [place], [address], 05/18/2024 14:14:27 05/18/20 24 05/18/2024 CMP (FEMA LE) A/G ratio 1.4 ratio Not Available [facility] [address] [facility] [address], [place], [address], 05/18/2024 14:14:27 05/18/20 24 05/18/2024 CMP (FEMA LE) ALP phos 55.0 U/L 30.0-1 40.0 normal Not Available [facility] [address] [facility] [address], [place], [address], 05/18/2024 14:14:27 05/18/2005/18/2024 CMP (FEMA LE) calcium 10.0 mg/dL 8.4-10 .5 Not Available [facility] [address] [facility] [address], [place], [address], 05/18/2024 14:14:27 05/18/20 24 05/18/2024 CMP (FEMA LE) sodium 140.0 mmol/ L 136.0- 145.0 Not Available [facility] [address] [facility] [address], [place], [address], 05/18/2024 14:14:27 05/18/20 24 05/18/2024 CMP (FEMA LE) potassium 4.5 mmol/ L 3.5-5. 1 Not Available [facility] [address] [facility] [address], [place], [address], 05/18/2024 14:14:27 05/18/2005/18/2024 CMP (FEMA LE) chloride 104.0 mmol/ L 98.0-1 10.0 normal Not Available [facility] [address] [facility] [address], [place], [address], 05/18/2024 14:14:27 05/18/20 24 05/18/2024 CMP (FEMA LE) C02 26.0 mmol/ L 22.0-3 1.0 Not Available [facility] [address] [facility] [address], [place], [address], 05/18/2024 14:14:27 05/18/20 24 05/18/2024 CMP (FEMA LE) anion gap 10.0 calc Not Available [facility] [address] [facility] [address], [place], [address], 05/18/2024 14:14:27 05/18/20 24 05/18/2024 CMP (FEMA LE) osmolality 294.7 calc Not Available [facility] [address] [facility], [place], [address], 05/18/2024 14:14:27 05/18/20 24 05/18/2024 HbA1c (hemo globi n A1c), blood HbA1c 9.9 Not Available [facility] ([facility]) [address] [place], [address], 05/18/2024 13:04:01 08/18/19 25 08/18/2024 CBC WBC 4.9 x10 4.0-10 .5 Not Available [facility] [address] [facility], [place], [address], 08/18/2024 13:13:54 08/18/1908/18/2024 CBC RBC 4.13 x10 3.50-5 .50 Not Available [facility] [address] [facility], [place], [address], 08/18/2024 13:13:54 08/18/19 25 08/18/2024 CBC HGB 11.9 g/dL 12.0-1 6.0 low Not Available [facility] [address] [facility] [place], [address], 08/18/2024 13:13:54 08/18/19 25 08/18/2024 CBC HCT 34.7 % 37.0-4 7.0 low Not Available [facility] [address] [facility] 1, [place], [address], 08/18/2024 13:13:54 08/18/19 25 08/18/2024 CBC MCV 84.0 fL 80.0-9 9.9 Not Available [facility] [address] [facility] 1, [place], [address], 08/18/2024 13:13:54 08/18/1908/18/2024 CBC MCH 28.8 pg 27.0-3 2.0 Not Available [facility] [address] [facility] 1, [place], [address], 08/18/2024 13:13:54 08/18/1908/18/2024 CBC MCHC 34.3 g/dL 32.0-3 6.0 Not Available [facility] [address] [facility] [address] [facility] 1, [place], [address], 08/18/2024 13:13:54 08/18/1908/18/2024 CBC RDW 14.0 % 11.5-1 4.5 Not Available [facility] [address] [facility] [address] [facility] 1, [place], [address], 08/18/2024 13:13:54 08/18/1908/18/2024 CBC plt 270.2 x10 140.0- 451.0 Not Available [facility] [address] [facility] [address] [facility] 1, [place], [address], 08/18/2024 13:13:54 08/18/1908/18/2024 CBC lymphocytes % 33.0 % 20.0-5 0.0 Not Available [facility] [address] [facility] [address] [facility], [place], [address], 08/18/2024 13:13:54 08/18/19 25 08/18/2024 CBC granulcytes % 53.0 % 30.0-7 0.0 Not Available [facility] [address] [facility] [address] [facility] 1, [place], [address], 08/18/2024 13:13:54 08/18/19 25 08/18/2024 CBC monocytes % 11.3 % 2.0-16 .0 Not Available [facility] [address] [facility] 1, [place], [address], 08/18/2024 13:13:54 08/18/19 25 08/18/2024 CBC granulcytes# 2.6 x10 Not Meme ilable [facility] [address] [address], [place], [address], 08/18/2024 13:13:54 08/18/19 25 08/18/2024 CBC lymphocytes # 1.6 x10 Not Available [facility] [address] [address], [place], [address], 08/18/2024 13:13:54 08/18/19 25 08/18/2024 CBC monocytes # 0.6 x10 Not Avai lable [facility] [address] [address], [place], [address], 08/18/2024 13:13:54 08/18/19 25 08/18/2024 HBA1C hemaglobin A1C 10.4 4.2-6. 5 high Not Available [facility] [address] [address], [place], [address], 08/18/2024 13:27:37 08/18/19 25 08/18/2024 TSH TSH 2.11 uIU/m L 0.49-3 .82 Not Available [facility] [address] [address], [place], [address], 08/18/2024 13:44:57 08/18/19 25 08/18/2024 CMP (FEMA LE) glucose 96.0 mg/dL 60.0-9 9.0 Not Available [facility] [address] [facility], [place], [address], 08/18/2024 15:55:59 08/18/19 25 08/18/2024 CMP (FEMA LE) BUN (blood urea nitrogen) 38.0 mg/dL 10.0-2 6.0 high Not Available [facility] [address] [facility], [place], [address], 08/18/2024 15:55:59 08/18/19 25 08/18/2024 CMP (FEMA LE) creatinine (serum) 1.0 mg/dL 0.4-1. 5 Not Available [facility] [address] [facility], [place], [address], 08/18/2024 15:55:59 08/18/19 25 08/18/2024 CMP (FEMA LE) BUN/creatini ne ratio 38.00 ratio Not Available [facility] [address] [facility] [address] [address], [place], [address], 08/18/2024 15:55:59 08/18/19 25 08/18/2024 CMP (FEMA LE) eGFR calculated 56.1 Not Available [facility] [address] [facility], [place], [address], 08/18/2024 15:55:59 08/18/19 25 08/18/2024 CMP (FEMA LE) total protein 7.8 g/dL 6.0-8. 5 Not Available [facility] [address] [facility] [address] [address], [place], [address], 08/18/2024 15:55:59 08/18/19 25 08/18/2024 CMP (FEMA LE) total bilirubin 0.5 mg/dL 0.2-1. 3 Not Available [facility] [address] [facility], [place], [address], 08/18/2024 15:55:59 08/18/19 25 08/18/2024 CMP (FEMA LE) albumin 4.5 g/dL 3.5-5. 5 Not Available [facility] [address] [facility], [place], [address], 08/18/2024 15:55:59 08/18/19 25 08/18/2024 CMP (FEMA LE) globulin 3.3 calc Not Available [facility] [address] [facility], [place], [address], 08/18/2024 15:55:59 08/18/19 25 08/18/2024 CMP (FEMA LE) AST (SGOT) 22.0 U/L 0.0-46 .0 Not Available [facility] [address] [facility], [place], [address], 08/18/2024 15:55:59 08/18/19 25 08/18/2024 CMP (FEMA LE) altv (SGPT) 16.0 U/L 13.0-6 9.0 normal Not Available [facility] [address] [facility] 1, [place], [address], 08/18/2024 15:55:59 08/18/19 25 08/18/2024 CMP (FEMA LE) A/G ratio 1.4 ratio Not Available [facility] [address] [facility] 1, [place], [address], 08/18/2024 15:55:59 08/18/19 25 08/18/2024 CMP (FEMA LE) ALP phos 57.0 U/L 30.0-1 40.0 normal Not Available [facility] [address] [facility] 1, [place], [address], 08/18/2024 15:55:59 08/18/19 25 08/18/2024 CMP (FEMA LE) calcium 10.3 mg/dL 8.4-10 .5 Not Available [facility] [address] [facility] 1, [place], [address], 08/18/2024 15:55:59 08/18/19 25 08/18/2024 CMP (FEMA LE) sodium 136.0 mmol/ L 136.0- 145.0 Not Available [facility] [address] [facility] 1, [place], [address], 08/18/2024 15:55:59 08/18/19 25 08/18/2024 CMP (FEMA LE) potassium 4.4 mmol/ L 3.5-5. 1 Not Available [facility] [address] [facility] 1, [place], [address], 08/18/2024 15:55:59 08/18/19 25 08/18/2024 CMP (FEMA LE) chloride 100.0 mmol/ L 98.0-1 10.0 normal Not Available [facility] [address] [address], [place], [address], 08/18/2024 15:55:59 08/18/19 25 08/18/2024 CMP (FEMA LE) C02 28.0 mmol/ L 22.0-3 1.0 Not Available [facility] [address] [facility] 1, [place], [address], 08/18/2024 15:55:59 08/18/19 25 08/18/2024 CMP (FEMA LE) anion gap 8.0 calc Not Available [facility] [address] [facility] 1, [place], [address], 08/18/2024 15:55:59 08/18/19 25 08/18/2024 CMP (FEMA LE) osmolality 289.5 calc Not Available [facility] [address] [facility] 1, [place], [address], 08/18/2024 15:55:59 08/18/19 25 08/18/2024 LIPID PROFI LE (FEMA LE) cholesterol 269.0 mg/dL 0.0-20 0.0 high Not Available [facility] [address] [facility], [place], [address], 08/18/2024 15:56:01 08/18/19 25 08/18/2024 LIPID PROFI LE (FEMA LE) trig 336.0 mg/dL 0.0-15 0.0 high Not Available [facility] [address] [facility] 1, [place], [address], 08/18/2024 15:56:01 08/18/19 25 08/18/2024 LIPID PROFI LE (FEMA LE) HDL - direct 36.0 mg/dL >40.0 low Not Available [facility] [address] [address], [place], [address], 08/18/2024 15:56:01 08/18/19 25 08/18/2024 LIPID PROFI LE (FEMA LE) VLDL - direct 67.2 mg/dL Not Available [facility] [address] [address], [place], [address], 08/18/2024 15:56:01 08/18/19 25 08/18/2024 LIPID PROFI LE (FEMA LE) LDL - direct 165.8 mg/dL 0.0-13 0.0 high Not Available [facility] [address] [address], [place], [address], 08/18/2024 15:56:01 08/18/19 25 08/19/2024 ALBUM IN, RANDO M URINE W/CRE ATINI NE creatinine, random urine 92 mg/dL 20-275 normal Not Available [facility] [address] [place], [address], 08/19/2024 08:44:52 08/18/19 25 08/19/2024 ALBUM IN, RANDO M URINE W/CRE ATINI NE albumin, urine 7.2 mg/dL see note: normal Refer ence Range : Refer ence Range Not estab lishe d Not Available [address] [address] [place], [address], 08/19/2024 08:44:52 08/18/19 25 08/19/2024 ALBUM IN, RANDO M URINE W/CRE ATINI NE albumin/crea tinine ratio, random urine 78 mg/g_ creat <30 high The ADA defin es abnor malit ies in album in excre tion as follo ws: Album inuri a Categ ory Resul t (mg/g creat inine ) Lizz l to Mildl y incre ased <30 Moder ately incre ased 30-29 9 Sever lucinda incre ased > OR = 300 The ADA recom mends that at least two of three speci mens colle cted withi n a 3-6 month perio d be abnor mal befor e consi veronica g a patie nt to be withi n a diagn ostic categ ory. Not Available [facility] [address] [place], [address], 08/19/2024 08:44:52 12/16/1912/15/2024 CBC WBC 5.8 x10 4.0-10 .5 Not Available [facility] [address] [facility] [address], [place], [address], 12/15/2024 13:03:25 12/16/1912/15/2024 CBC RBC 4.33 x10 3.50-5 .50 Not Available [facility] [address] [facility] [address], [place], [address], 12/15/2024 13:03:25 12/16/1912/15/2024 CBC HGB 12.2 g/dL 12.0-1 6.0 Not Available [facility] [address] [facility] [address] [facility], [place], [address], 12/15/2024 13:03:25 12/16/1912/15/2024 CBC HCT 37.3 % 37.0-4 7.0 Not Available [facility] [address] [facility] [address], [place], [address], 12/15/2024 13:03:12/16/1912/15/2024 CBC MCV 86.1 fL 80.0-9 9.9 Not Available [facility] [address] [facility] [address] [facility], [place], [address], 12/15/2024 13:03:25 12/16/1912/15/2024 CBC MCH 28.2 pg 27.0-3 2.0 Not Available [facility] [address] [facility], [place], [address], 12/15/2024 13:03:25 12/16/1912/15/2024 CBC MCHC 32.8 g/dL 32.0-3 6.0 Not Available [facility] [address] [facility] [place] [facility] [address], [place], [address], 12/15/2024 13:03:12/16/1912/15/2024 CBC RDW 14.4 % 11.5-1 4.5 Not Available [facility] [address] [place] [address] [facility] [address], [place], [address], 12/15/2024 13:03:25 12/16/1912/15/2024 CBC plt 321.0 x10 140.0- 451.0 Not Available [facility] [address] [facility] [address], [place], [address], 12/15/2024 13:03:25 12/16/19 25 12/15/2024 CBC lymphocytes % 21.9 % 20.0-5 0.0 Not Available [facility] [address] [facility] [address], [place], [address], 12/15/2024 13:03:25 12/16/1912/15/2024 CBC granulcytes % 65.2 % 30.0-7 0.0 Not Available [facility] [address] [facility] [address], [place], [address], 12/15/2024 13:03:25 12/16/19 25 12/15/2024 CBC monocytes % 10.1 % 2.0-16 .0 Not Available [facility] [address] [facility], [place], [address], 12/15/2024 13:03:25 12/16/19 25 12/15/2024 CBC granulcytes# 3.8 x10 Not Meme ilable [facility] [address] [facility] [address], [place], [address], 12/15/2024 13:03:25 12/16/1912/15/2024 CBC lymphocytes # 1.3 x10 Not Available [facility] [address] [facility] [address], [place], [address], 12/15/2024 13:03:25 12/16/1912/15/2024 CBC monocytes # 0.6 x10 Not Avai lable [facility] [address] [facility] [address], [place], [address], 12/15/2024 13:03:25 12/16/19 25 12/15/2024 HBA1C hemaglobin A1C 8.6 4.2-6. 5 high Not Available [facility] [address] [facility] [address], [place], [address], 12/15/2024 13:17:53 12/16/19 25 12/15/2024 CMP (FEMA LE) glucose 137.0 mg/dL 60.0-9 9.0 high Not Available [facility] [address] [facility] 1, [place], [address], 12/15/2024 13:40:18 12/16/19 25 12/15/2024 CMP (FEMA LE) BUN (blood urea nitrogen) 32.0 mg/dL 10.0-2 6.0 high Not Available [facility] [address] [address], [place], [address], 12/15/2024 13:40:18 12/16/19 25 12/15/2024 CMP (FEMA LE) creatinine (serum) 0.9 mg/dL 0.4-1. 5 Not Available [facility] [address] [address], [place], [address], 12/15/2024 13:40:18 12/16/19 25 12/15/2024 CMP (FEMA LE) BUN/creatini ne ratio 35.56 ratio Not Available [facility] [address] [address], [place], [address], 12/15/2024 13:40:18 12/16/19 25 12/15/2024 CMP (FEMA LE) eGFR calculated 63.4 Not Available [facility] [address] [address], [place], [address], 12/15/2024 13:40:18 12/16/19 25 12/15/2024 CMP (FEMA LE) total protein 7.6 g/dL 6.0-8. 5 Not Available [facility] [address] [facility] [address], [place], [address], 12/15/2024 13:40:18 12/16/19 25 12/15/2024 CMP (FEMA LE) total bilirubin 0.5 mg/dL 0.2-1. 3 Not Available [facility] [address] [facility] [address], [place], [address], 12/15/2024 13:40:18 12/16/19 25 12/15/2024 CMP (FEMA LE) albumin 4.3 g/dL 3.5-5. 5 Not Available [facility] [address] [facility] 1, [place], [address], 12/15/2024 13:40:18 12/16/19 25 12/15/2024 CMP (FEMA LE) globulin 3.3 calc Not Available [facility] [address] [facility] [address], [place], [address], 12/15/2024 13:40:18 12/16/19 25 12/15/2024 CMP (FEMA LE) AST (SGOT) 24.0 U/L 0.0-46 .0 Not Available [facility] [address] [facility] 1, [place], [address], 12/15/2024 13:40:18 12/16/19 25 12/15/2024 CMP (FEMA LE) altv (SGPT) 21.0 U/L 13.0-6 9.0 normal Not Available [facility] [address] [facility] [address], [place], [address], 12/15/2024 13:40:18 12/16/19 25 12/15/2024 CMP (FEMA LE) A/G ratio 1.3 ratio Not Available [facility] [address] [address], [place], [address], 12/15/2024 13:40:18 12/16/19 25 12/15/2024 CMP (FEMA LE) ALP phos 58.0 U/L 30.0-1 40.0 normal Not Available [facility] [address] [facility] [address], [place], [address], 12/15/2024 13:40:18 12/16/19 25 12/15/2024 CMP (FEMA LE) calcium 10.7 mg/dL 8.4-10 .5 high Not Available [facility] [address] [facility] [address], [place], [address], 12/15/2024 13:40:18 12/16/19 25 12/15/2024 CMP (FEMA LE) sodium 141.0 mmol/ L 136.0- 145.0 Not Available [facility] [address] [address], [place], [address], 12/15/2024 13:40:18 12/16/1912/15/2024 CMP (FEMA LE) potassium 4.0 mmol/ L 3.5-5. 1 Not Available [facility] [address] [address], [place], [address], 12/15/2024 13:40:18 12/16/19 25 12/15/2024 CMP (FEMA LE) chloride 105.0 mmol/ L 98.0-1 10.0 normal Not Available [facility] [address] [address], [place], [address], 12/15/2024 13:40:18 12/16/1912/15/2024 CMP (FEMA LE) C02 28.0 mmol/ L 22.0-3 1.0 Not Available [facility] [address] [address], [place], [address], 12/15/2024 13:40:18 12/16/19 25 12/15/2024 CMP (FEMA LE) anion gap 8.0 calc Not Available [facility] [address] [facility] [address], [place], [address], 12/15/2024 13:40:18 12/16/19 25 12/15/2024 CMP (FEMA LE) osmolality 299.5 calc Not Available [facility] [address] [facility] [address], [place], [address], 12/15/2024 13:40:18 12/16/19 25 12/15/2024 TSH TSH 1.56 uIU/m L 0.49-3 .82 Not Available [facility] [address] [facility] [address], [place], [address], 12/15/2024 16:05:11 Result Notes None recorded. Problems Name Problem SNOMED Code Status Onset Date Resolution Date Notes Provider Name and Address Organization Details Recorded Time Type 2 diabetes mellitus 29282673 Active 2022 Radha Sanchez [address], [address], [facility] 12:38:38 Hypothyroid ism 39151619 Active 2022 Radha Sanchez DO [address] [place] [address], [address], [facility] 12:38:37 Essential hypertensio n 54052506 Active 2022 Radha Sanchez [address], [address], [facility] 12:38:37 Hyperlipide mariia 10097034 Active 2022 Radha Sanchez DO [address] [place] [address], [address], [facility] 5 12:38:37 Active or passive immunizatio n Active 2022 Radha Sanchez, [address], [address], [facility] 3 13:33:02 Urinary incontinenc e 220044827 Active 2023 Radha Sanchez, [address], [address], [facility] 5 12:38:37 Onychomycos is of toenails 503625842 Active 2023 Radha Sanchez, [address], [address], [facility] 4 12:38:02 Pain of left knee joint 5255430590094 07 Active 2023 Radha Sanchez [address], [address], [facility] 4 12:38:07 Peripheral arterial occlusive disease 071142360 Active 2023 Radha Sanchez [address], [address], [facility] 5 12:38:37 Acute nontraumati c kidney injury 5228002034467 03 Active 2023 Radha Sanchez [address], [address], [facility] 4 10:40:52 Nausea, vomiting and diarrhea 3455396 Active 2023 Rahda Sanchez [address], [address], [facility] 4 10:40:54 Abdominal pain 25735526 Active 2023 Radha Sanchez [address], [address] [place] [address] 5, [facility] 4 12:47:22 Traumatic blister of toe 659006863 Active [address], [address] [place] [address] 5, [facility] 4 16:17:13 Closed fracture of proximal phalanx of great toe 623386143 Active [address], [address] [place] [address] 5, [facility] 4 16:17:14 Pain in right foot 5273196368688 07 Active [address], [address] [place] [address] 5, [facility] 4 16:22:08 Right rotator cuff syndrome 5334160821986 09 Active [address], [address] [place] [address] 5, [facility] 5 12:35:47 Amnesia 69811390 Active [address], [address] [place] [address] 5, [facility] 5 08:10:45 Ingrowing great toenail 672132961 Active [address], [address] [place] [address] 5, [facility] 5 08:10:58 Problem Notes None recorded. Procedures Surgical History Date Name Laterality Status Provider Name and Address Organization Details Recorded Time 4 Toenail avulsion completed Xiang Arrieta [facility] 11/19/2023 17:32:34 Cataract Surgery completed VALERIA JOHN [facility] 10/10/2022 10:29:22 Imaging Results None recorded. Procedure Notes None recorded. Medical Equipment None Reported. Allergies Allergen ID Allergen Name Allergen Category Reaction Reaction Severity Criticality Documentation Date Start Date Code Code System Note Provider Name and Address Organization Details Recorded Time 98172 codeine hydrochlo ride Not available other Not available Not available 02/15/2023 89699 66 RxNorm React ion: moder ate; Comme nt: Recor ded 05/08 9:54A M by Cristi laboy, Offic e Visit ; Promo dimitri; Jhonny ramsey ce: *; ; Natasha mariee [facility] 4 10:56:52 61 codeine medicatio n other moderate low 10/04/2022 2670 RxNorm Natasha mariee [facility] 4 09:14:13 Medications Name Sig Start Date Stop Date Status Note LastModified by Organization Details LastModified Time FreeStyle Aissatou 2 Plus sensor Use as directed to monitor blood sugar. Change sensor every 14 days 2024 active Not Available Not Available Not Avai lable atorvasta tin 40 mg tablet TAKE 1 TABLET BY MOUTH IN THE EVENING active Not Available Not Available No t Available Unistik 2 Device kit two times daily 06/16 completed Recorded 04/18/20 10:49AM by Debbie Rivera, Office Visit; Mail Order Quantity : 100 Each; Mail Order Days: 100 Days; Refill Quantity : 100; Each; Not Available Not Available Not Available donepezil 5 mg tablet TAKE 1 TABLET BY MOUTH EVERY DAY IN THE MORNING, FOR MEMORY. active Not Available Not Available No t Available ondansetr on HCl 8 mg tablet TAKE 1 TABLET BY MOUTH 3 TIMES A DAY BY NEEDED, FOR NAUSEA/V OMITING. 08/18 completed Not Available Not Available Not Available lisinopri l 20 mg tablet TAKE 1 TABLET BY MOUTH EVERY DAY active Not Available Not Available No t Available prednison e 20 mg tablet TAKE 1 TABLET BY MOUTH EVERY DAY FOR 5 DAYS 02/22 completed Not Available Not Available Not Available Lantus U-100 Insulin 100 unit/mL subcutane ous solution INJECT 65 UNITS SUBCUTAN EOUSLY TWICE DAILY 02/08 completed Not Available Not Available Not Available acyclovir 800 mg tablet TAKE 1 TABLET BY MOUTH 5 TIMES A DAY 05/18 completed Not Available Not Available Not Available meloxicam 7.5 mg tablet TAKE 1 TABLET BY MOUTH EVERY DAY FOR KNEE PAIN 08/18 completed Not Available Not Available Not Available prednisol one acetate 1 % eye drops,suhail pension INSTILL 1 DROP INTO LEFT EYE 4 TIMES A DAY 08/18 completed Not Available Not Available Not Available cephalexi n 500 mg capsule TAKE 1 CAPSULE BY MOUTH THREE TIMES A DAY FOR 7 DAYS active Not Available Not Available No t Available pantopraz ole 40 mg tablet,de layed release TAKE 1 TABLET BY MOUTH EVERY DAY 08/18 completed Not Available Not Available Not Available glimepiri de 4 mg tablet TAKE 1 TABLET BY MOUTH EVERY DAY IN THE EVENING 08/18 completed Not Available Not Available Not Available cephalexi n 500 mg tablet Take 1 tablet 3 times a day by oral route for 7 days. 04/13 completed Not Available Not Available Not Available dorzolami de 22.3 mg-timolo l 6.8 mg/mL eye drops INSTILL 1 DROP INTO LEFT EYE TWICE A DAY 08/18 completed Not Available Not Available Not Available ondansetr on 4 mg disintegr ating tablet TAKE 1 TABLET BY MOUTH EVERY 8 HOURS FOR 5 DAYS 03/16 completed Not Available Not Available Not Available fluticaso ne propionat e 50 mcg/actua tion nasal spray,suhail pension spray each nostril daily 06/16 completed 0; Recorded 05/08/20 22 9:54AM by Valeria John, Office Visit; Not Available Not Available Not Available amoxicill in 875 mg-potass ium clavulana te 125 mg tablet TAKE 1 TABLET BY MOUTH EVERY 12 HOURS FOR 10 DAYS 08/18 completed Not Available Not Available Not Available BD Ultra-Fin e Mini Pen Needle 31 gauge x 3/16 USE DIRECTED TO INJECT INSULIN TWO TIMES DAILY active Not Available Not Available No t Available lisinopri l daily 06/16 completed 86969; Recorded 08/28/19 23 1:02PM by Debbie Rivera (Marv doll through Radha Sanchez DO), Annotati on/Adden dum; Mail Order Quantity : 90 Tablet; Refill Quantity : 0; Not Available Not Available Not Available One Touch Ultra Test Strips three times daily 2021 active E11.9 Not Available Not Available Not Avai lable Fenofibra te daily 06/16 completed Recorded 01/03/20 22 2:24PM by Debbie Rivera, Office Visit; Not Available Not Available Not Available fenofibra te nanocryst allized 145 mg tablet TAKE 1 TABLET BY MOUTH EVERY DAY 08/18 completed Not Available Not Available Not Available Lantus Solostar U-100 Insulin 100 unit/mL (3 mL) subcutane ous pen INJECT 70 UNITS TWICE A DAY BY SUBCUTAN EOUS ROUTE DIRECTED FOR 90 DAYS, FOR DIABETES . active Not Available Not Available No t Available diclofena c 1 % topical gel APPLY 2 GRAMS TO THE AFFECTED AREA(S) BY TOPICAL ROUTE 2-3 TIMES PER DAY 02/02 completed Not Available Not Available Not Available Myrbetriq 25 mg tablet,ex tended release TAKE 1 TABLET BY MOUTH EVERY DAY IN THE MORNING 08/18 completed Not Available Not Available Not Available TRUEplus Insulin 1 mL 30 gauge x 5/16 syringe FOR USE WITH LANTUS active Not Available Not Available No t Available Trulicity 0.75 mg/0.5 mL subcutane ous pen injector INJECT 0.75MG SUBCUTAN EOUSLY ONE TIME PER WEEK 09/16 completed Not Available Not Available Not Available TechLITE Pen Needle 31 gauge x 5/16 USE DIRECTED TO INJECT INSULIN TWO TIMES DAILY active Not Available Not Available No t Available OneTouch Delica Plus Lancet 33 gauge active Not Available Not Available Not Available FreeStyle Aissatou 2 Sensor kit USE DIRECTED EVERY 14 DAYS 2024 active Not Available Not Available Not Avai lable FreeStyle Aissatou 2 [place] USE DIRECTED . active Not Available Not Available No t Available FreeStyle Aissatou 3 Plus Sensor device use as directed 2024 active Not Available Not Available Not Avai lable Vitals Date Recorded Body height Body mass index (BMI) Body weight Oxygen saturation Oxygen saturation in Arterial blood by Pulse oximetry Heart rate Respiratory rate Systolic And Diastolic Provider Name and Address Organization Details Last Updated DateTime 5 160.02 cm 30.3 kg/m2 16156.7 g 97 % 97 % 86 /min 18 /min 140/86 mm[Hg] VALERIA JOHN [facility] 5 11:55:16 Date Recorded Body height Oxygen saturation Oxygen saturation in Arterial blood by Pulse oximetry Heart rate Respiratory rate Systolic And Diastolic Provider Name and Address Organization Details Last Updated DateTime 5 160.02 cm 99 % 99 % 85 /min 16 /min 138/78 mm[Hg] Tesfaye Tate [facility] 5 12:30:30 Date Recorded Body height Body mass index (BMI) Body weight Oxygen saturation Oxygen saturation in Arterial blood by Pulse oximetry Heart rate Respiratory rate Systolic And Diastolic Provider Name and Address Organization Details Last Updated DateTime 5 160.02 cm 29.6 kg/m2 97607.3 3 g 98 % 98 % 82 /min 18 /min 116/70 mm[Hg] Avis Thomas [facility] 5 12:17:58 Date Recorded Body height Body mass index (BMI) Body weight Oxygen saturation Oxygen saturation in Arterial blood by Pulse oximetry Heart rate Respiratory rate Systolic And Diastolic Provider Name and Address Organization Details Last Updated DateTime 5 160.02 cm 29.1 kg/m2 94105.5 5 g 96 % 96 % 90 /min 18 /min 134/86 mm[Hg] Avis Thomas [facility] 5 16:03:39 Date Recorded Body height Body mass index (BMI) Body weight Oxygen saturation Oxygen saturation in Arterial blood by Pulse oximetry Heart rate Respiratory rate Systolic And Diastolic Provider Name and Address Organization Details Last Updated DateTime 4 160.02 cm 29.8 kg/m2 21904.9 2 g 98 % 98 % 88 /min 18 /min 130/80 mm[Hg] Avis Thomas [facility] 4 12:39:42 Social History Question Answer Notes LastModified by [employer] Details LastModified Time Tobacco Smoking Status Never Smoker [facility] 02/17/2024 13:00:52 What Is Your Level Of Caffeine Consumption? Moderate [email or web address] Information not available 09/16/2024 Sex: Unknown Functional Status Question Answer Note LastModified by [employer] Details LastModified Time Do you use any illicit or recreational drugs? No [email or web address] Information not available 10/10/2022 Do you or have you ever used any other forms of tobacco or nicotine? No [email or web address] Information not available 10/10/2022 What is your level of alcohol consumption? None Information not available 10/10/2022 Mental Status None recorded. Family History Nothing Reported Notes:Brother: Diabetes Danay itus Father: Colon Cancer Maternal Grandmother: Diabetes Mellitus Mother: Diabetes Mellitus Sister: Diabetes Mellitus Medical History No medical history recorded. Gynecological HistoryNo gynecological history recorded. Obstetrics History GPAL:G 0 P 0 0 0 0 Immunizations Vaccine Type Date Status Note Provider Name and Address Organization Details Recorded Time Influenza, high-dose, quadrivalent, PF 07/03/20 22 completed Avis mariee [facility] 02/03/2024 10:12:27 COVID-19, mRNA, LNP-S, PF, 100 mcg/0.5mL dose or 50 mcg/0.25mL dose 08/29/19 21 completed Avis mariee [facility] 02/03/2024 10:12:27 COVID-19, mRNA, LNP-S, PF, 100 mcg/0.5mL dose or 50 mcg/0.25mL dose 06/19/20 21 completed Avis William mariee, [facility] 02/03/2024 10:12:27 COVID-19, mRNA, LNP-S, bivalent, PF, 50 mcg/0.5 mL or 25mcg/0.25 mL dose 07/03/20 22 completed Avis Thomas null, [facility] 02/03/2024 10:12:27 Pneumococcal conjugate PCV 13 06/12/20 15 completed Avis Thomas null, [facility] 02/03/2024 10:12:27 zoster live 04/23/20 16 completed Avis Thomas jaylene, [facility] 02/03/2024 10:12:27 Influenza, split virus, quadrivalent, PF 06/16/20 23 completed VALERIA mariee, [facility] 06/16/2023 15:22:32 Influenza, split virus, trivalent, PF 04/28/20 24 completed Avis mariee [facility] 04/28/2024 18:00:45 Influenza, split virus, trivalent, PF 05/18/20 24 cancelled patient objection Avis mariee [facility] 05/19/2024 15:47:04 Past Encounters Encounter ID Performer Location Encounter Start Date Encounter Closed Date Diagnosis/Indication Diagnosis SNOMED-CT Code Diagnosis ICD10 Code Diagnosis IMO Codes Diagnosis Note [id number] Radha Sanchez DO [facility] ([facility]) [address] [place] [address] 10/10/2022 09:51:16 10/14/2022 08:34:40 Diabetes mellitus 50014034 E11.69 I reviewed labs from oct, a1c 8.3. I am concerned her confusion intermitta nt for the last few mts has been glucose related. will get repeat labs today. setting her up for CGMS. f/u 3-4 wks.contin ue glimepirid e 4mg, trulicity wkly. lantus 75u bid. Hypothyroidism 39810472 E03.9 cotinue levothyrox ine, labs today. Type 2 alex betes mellitus 48864210 E11.22 Mixed hyperlipidemia 267 925794 E78.2 continue atorvastat in. labs today. [id number] Radha Sanchez DO [facility] ([facility]) [address] [place] [phone] 02/11/2023 11:30:08 02/11/2023 14:21:15 Essential hypertension 52119091 I10 stable. continue lisinopril . Type 2 alex betes mellitus 67746314 E11.22 pt working on diet and exercise. some lows. will decrease lantus from 75 bid down to 65 bid. continue glimepirid e, trulicity. continue with CGM. counseledl abs today. Hypothyroidism 51698820 E03.9 cotinue levothyrox ine, labs today. Pain of le ft knee joint 5242899172 85597 M25.562 worsening. will try topical diclofenac , consider joint injection. counseled [id number] Radha Sanchez DO [facility] ([facility]) [address] [place] [phone] 03/13/2023 11:02:02 03/13/2023 18:43:49 [id number] Radha Sanchez DO [facility] ([facility]) [address] [place] [phone] 06/16/2023 12:29:26 06/16/2023 13:35:16 Essential hypertension 70266007 I10 stable. continue lisinopril . Type 2 alex betes mellitus 29389996 E11.22 pt working on diet and exercise. I counseled on recent labs after reviewing. MEDS: continue glimepirid e, trulicity. continue with CGM. counseled on meds.labs today. Hypothyroidism 05002955 E03.9 continue levothyrox ine, labs today. Active or passive immunization 074576004 Z23 I counsled pt on vaccinatio ns. pt given fluvax today as above per pt request. Hyperlipidemia 68165191 E78.5 Stable. Will repeat labs. Continue Atorvastat in. Counseled on diet and exericse. [id number] Radha Sanchez DO [facility] ([facility]) [address] [place] [address] 10/08/2023 15:13:45 10/08/2023 16:46:43 Essential hypertension 11085000 I10 stable. continue lisinopril . Hypothyroidism 26144340 E03.9 continue levothyrox ine, labs today. Type 2 alex betes mellitus 00217770 E11.22 pt working on diet and exercise. I counseled on recent labs after reviewing. MEDS: continue glimepirid e, trulicity. continue with CGM. counseled on meds.labs today. Obesity 474019447 E66.9 Counseled on diet and activity. Chronic ki dney disease stage 3 044914267 N18.30 Lab today. Hyperlipidemia 39254220 E78.5 Stable. Continue Atorvastat in. Counseled on diet and activity. Urinary incontinence 165 485380 R32 10/08/23- Counseled will stop bladder med, provided with info on kegal exercises. Counseled uncontroll ed glucose can contribute to this. [id number] Radha Sanchez DO [facility] ([facility]) [address] [place] [phone] 11/11/2023 11:19:56 11/11/2023 14:06:22 Essential hypertension 10493234 I10 stable. continue lisinopril Type 2 alex betes mellitus 55278779 E11.22 I reviewed most recent labs with pt as per above. We reconciled medication s. We discussed diet, exercise, weight management . We discussed routine eye care and foot care. Pt to monitor glucose regularly. CGMS really helped pt understand how diet affects glucose. continue current medication s: glimepirid e, Lantus 65u BID, Trulciity 0.75mg wkly.last A1c: 9.2 on 10/08/23rep eat labs: next appt. Pain of le ft knee joint [id number] 62463 M25.562 with DJD, injections have not helped much in the past, pt desires referral. will refer to ortho. counseled Onychomyco sis of toenails 531499830 B35.1 [id number] Radha Sanchez DO [facility] ([facility]) [address] [place] [id number] 11/19/2023 17:02:36 11/19/2023 18:11:12 Onychomycosis of toenails 140514326 B35.1 11/19/23 Left great toenail removed today, pt tolerated well, counseled on wound care. Type 2 alex betes mellitus 91481867 E11.22 I reviewed most recent labs with pt as per above. We reconciled medication s. We discussed diet, exercise, weight management . We discussed routine eye care and foot care. Pt to monitor glucose regularly. CGMS really helped pt understand how diet affects glucose. continue current medication s: glimepirid e, Lantus 65u BID, Trulciity 0.75mg wkly.last A1c: 9.2 on 10/08/23rep eat labs: next appt. [id number] Radha Sanchez DO [facility] ([facility]) [address] [place] [phone] 12/08/2023 13:31:58 12/09/2023 17:46:36 Peripheral arterial occlusive disease 092619392 I73.9 abnormal GINNY BLE. will send to vascular specialist . continue statin, bp control, and diabetes treatment. [id number] Radha Sanchez DO [facility] ([facility]) [address] [place] [phone] 02/03/2024 10:01:45 02/03/2024 10:51:12 Essential hypertension 79780959 I10 Patient off lisinopril due to recent hospitaliz ation and acute kidney injury. Repeat labs today remain off blood pressure medication s until further eval. Type 2 alex betes mellitus 05591842 E11.22 Patient admits that she has not been taking her diabetes medicine and is not taking her Lantus regularly at all and when she does she is adjusting her dosage frequently . Counseled patient extensivel y on appropriat e use of medication s, how to take, how not to take medication s including diabetes meds as well as monitoring blood sugar closely and eating a regular consistent diet. Will start her back on 30 units of Lantus twice a day. She will check her blood sugar frequently with her continuous glucose monitor. She will call me in 2 days with update on blood sugar logs, sooner with problems. Hypothyroidism 52604697 E03.9 continue levothyrox ine, labs today. Hyperlipidemia 29733652 E78.5 Currently off her statin and fenofibrat e due to recent hospitaliz ation. Remain off these for now. Will follow-up with labs. Diabetes mellitus 230039 09 E11.69 Acute nont raumatic kidney injury [id number] 71573 N17.9 Pt has been contacted by nursing/st génesis within 2 days of hospital discharge. I reviewed hospital records prior to seeing the patient today. I have reviewed tests/proc edures and diagnoses during hospital stay. I have reviewed and noted medication s prior to admission as well as medication changes post admission. I have updated and reconciled medication s post discharge today and meds are updated in EMR. I have also educated patient about medication changes and current medication s. Please see hpi above and chart for detailed records.I have addressed all patient questions today. They express verbal understand ing. We will get renal and and liver function today. As well as electrolyt es. Nausea, vo miting and diarrhea 7251861 R11.2 Appears to be possibly secondary to food poisoning. She was then found down and hospitaliz ed after. We are continue to hold her medication s with follow-up labs. I have reviewed hospital records as above. [id number] KANIKA RENDON [facility] ([facility]) [address] [place] [address] [phone] 5 02/17/2024 12:50:51 02/17/2024 13:38:05 Acute urticaria [id number] L50.9 Discussed use of prednisone as prescribed . May take a zyrtec in the a.m. and benadryl at night. [id number] Radha Sanchez DO [facility] ([facility]) [address] [place] [address] [phone] 5 02/23/2024 11:41:43 02/23/2024 13:24:42 Abdominal pain 26041545 R10.9 Unclear etiology. Will get x-rays and labs today as well as urine. Start Zofran. Counseled on signs symptoms of concern and when to go to the emergency room. [id number] Radha Sanchez DO [facility] ([facility]) [address] [place] [address] [phone] 5 03/02/2024 11:46:20 03/02/2024 12:56:54 Type 2 diabetes mellitus 46123131 E11.22 03/02/24- Reviewed glucose monitor log. Improving, readings are better and more consistent , counseled increase Lantus from 34u to 38u BID. Continue working on DM diet consistent ly. F/u 2 months, labs prior. Abdominal pain 50392863 R10.9 Improving, reviewed recent lab, counseled likely virus. [id number] KANIKA LISA [facility] ([facility]) [address] [place] [address] [phone] 5 04/25/2024 14:14:42 04/25/2024 15:45:23 Pain in right foot [id number] 90007 M79.671 Use OTC meds as needed for pain. RICE. X ray to radiology . Orthopedic shoe. [id number] Radha Sanchez DO [facility]) [address] [place] [address] [phone] 5 04/28/2024 15:43:05 04/29/2024 08:47:00 Pain in right foot [id number] 23253 M79.671 Use OTC meds as needed for pain. RICE. X ray to radiology . Orthopedic shoe. Closed fra cture of proximal phalanx of great toe 901540885 S92.415D I reviewed Xray and showed pt/christine khoury oblique, nondisplac ed.pt to f/u with podiatry tomorrow. start abx due to skin interrupti ons.counse led to continue with surgical shoe til tomorrow.p ain controlled currently. Traumatic blister of toe 486244820 S90.425D with DM@ and PVD. will start abx. wound care today with wound cleaning and dressing. counseled Active or passive immunization [id number] Z23 I counsled pt on vaccinatio ns. pt given fluvax today as above per pt request. [id number] Radha Sanchez DO [facility]) [address] [place] [address] [phone] 5 05/18/2024 12:24:37 05/18/2024 17:30:50 Pain in right foot [id number] 95418 M79.671 continue f/u with podiatry. counseled Closed fra cture of proximal phalanx of great toe 017635850 S92.415D healing, continue care with podiatry. Traumatic blister of toe 321828957 S90.425D improved. still red with some swelling. unlikely infection at this time, but will give wait and see abx RX. counseled on s/s of infection and of concern with action plan. Active or passive immunization [id number] Z23 I counsled pt on vaccinatio ns. pt given fluvax today as above per pt request. Type 2 alex betes mellitus 88554510 E11.22 08/18/23: repeat labs today. no change in lantus. .counseled on monitoring .03/02/24- Reviewed glucose monitor log. Improving, readings are better and more consistent , counseled increase Lantus from 34u to 38u BID. Continue working on DM diet consistent ly. F/u 2 months, labs prior. [id number] Radha Sanchez DO [facility] ([facility]) [address] [place] [address] [phone] 5 08/18/2024 11:32:37 08/19/2024 10:27:54 Type 2 diabetes mellitus 89189186 E11.22 E11.69 E11.51 08/18/24: repeat labs today. Take Lantus at 65u BID. Will also order to aid with home meds.- Reviewed glucose monitor log. Improving, readings are better and more consistent , counseled increase Lantus from 34u to 38u BID. Continue working on DM diet consistent ly. F/u 2 months, labs prior. Essential hypertension 99774958 I10 08/18/24- counseled resume Lisinopril . Hypothyroidism 40297974 E03.9 Lab today. Not taking thyroid med. Hyperlipidemia 66381778 E78.5 08/18/24- counseled resume Atorvastat in. Chronic ki dney disease stage 3A 913789943 N18.31 monitoring renal function. Obesity 751187418 E66.9 Counseled on diet and activity. Unsteady when walking 22 283049 R26.89 Quad cane today. Peripheral arterial occlusive disease 432969903 I73.9 stable. [id number] Radha Sanchez DO [facility] ([facility]) [address] [place] [address] [phone] 5 09/16/2024 11:42:36 09/21/2024 07:05:11 Type 2 diabetes mellitus 19958510 E11.22 E11.69 E11.51 09/16/24: I reviewed most recent labs with pt as per above. We reconciled medication s. We discussed diet, exercise, weight management . We discussed routine eye care and foot care. Pt to monitor glucose regularly. a1c 10.9 on 08/18/24.we will increase lantus to 70u bidrepeat labs: 3 mts. 08/18/24: repeat labs today. Take Lantus at 65u BID. Will also order HH to aid with home meds.- Reviewed glucose monitor log. Improving, readings are better and more consistent , counseled increase Lantus from 34u to 38u BID. Continue working on DM diet consistent ly. F/u 2 months, labs prior. Pain of ri ght shoulder joint [id number] 1950902 M25.511 likley arthritis flairup. pt thinks improving. declines injection today. return if not improving. counseled Memory impairment 780878 006 R41.3 counseled. mild. will start donepezil. counseled on brain exercises. will monitor [id number] Radha Sanchez DO [facility] ([facility]) [address] [place] [address] [phone] 5 12/15/2024 11:09:32 12/16/2024 10:50:53 Hypothyroidism 59864913 E03.9 Lab today. continue levothyrox ine. Essential hypertension 00244784 I10 stable, conitnue Lisinopril . Type 2 alex betes mellitus 27542417 E11.22 E11.69 E11.51 12/15/24: repeat labs today. continue meds.: I reviewed most recent labs with pt as per above. We reconciled medication s. We discussed diet, exercise, weight management . We discussed routine eye care and foot care. Pt to monitor glucose regularly. a1c 10.9 on 08/18/24.we will increase lantus to 70u bidrepeat labs: 3 mts. 08/18/24: repeat labs today. Take Lantus at 65u BID. Will also order HH to aid with home meds.- Reviewed glucose monitor log. Improving, readings are better and more consistent , counseled increase Lantus from 34u to 38u BID. Continue working on DM diet consistent ly. F/u 2 months, labs prior. Right rota tor cuff syndrome [id number] 76131 M75.534 [id number] recommend PT. pt desires home health with PT, she is home bound. will send orders. f/u in 2 mts. [id number] Radha Sanchez DO [facility] ([facility]) [address] [place] [address] [phone] 5 03/30/2025 15:25:01 04/04/2025 13:47:39 Type 2 diabetes mellitus 13544310 E11.22 E11.69 E11.51 E11.3593 12/15/24: repeat labs today. continue meds.: I reviewed most recent labs with pt as per above. We reconciled medication s. We discussed diet, exercise, weight management . We discussed routine eye care and foot care. Pt to monitor glucose regularly. a1c 10.9 on 08/18/24.we will increase lantus to 70u bidrepeat labs: 3 mts. 08/18/24: repeat labs today. Take Lantus at 65u BID. Will also order HH to aid with home meds.- Reviewed glucose monitor log. Improving, readings are better and more consistent , counseled increase Lantus from 34u to 38u BID. Continue working on DM diet consistent ly. F/u 2 months, labs prior. Essential hypertension 13821066 I10 stable, continue Lisinopril . Hyperlipidemia 59536553 E78.5 08/18/24- counseled resume Atorvastat in. Hypothyroidism 71729672 E03.9 Continue levothyrox ine. Peripheral arterial occlusive disease 537723897 I73.9 stable. Ingrowing great toenail 231832178 L60.0 656412 03/30/25: Discussed options of continuing to trim this nail at home if it's not bothering her, or we can do a procedure to remove the nail. She prefers to keep trimming at home for now. RTC for procedure if needed. Today we will tx with Cephalexin 500mg TID for 7 days. Amnesia 79552757 R41.3 69526 continue donepezil. counseled on brain exercises. will monitor. consider MMSE mext appt. Health Concerns Section Related Observation LastModified by Organization Detai ls LastModified Time None Recorded Concern Status LastModified by Organization Details LastModified Time None Recorded Advance Directives Directive None Recorded Payers Insurance Date Sequence Insurance Name Policy Number Policy Reyez Covered Member ID Reyez Member ID Guarantor Name 03/30/2025 1 [facility] (MEDICARE REPLAC[place]/A DVANTAGE - HMO) [employer] Danelle Elaine [id number] Danelle Elaine 03/30/2025 1 [facility] (MEDICARE REPLACEMENT/A DVANTAGE - HMO) Danelle Elaine [id number] Danelle Elaine 03/30/2025 2 [place] Danelle Elaine [id number] Danelle Elaine 03/30/2025 [place] [facility] Danelle Elaine [id number] Danelle Elaine Notes Date Note Type Note Provider Name and Address Organization Details Recorded Time 05/18/2024 text/html ROS as noted in the HPI pt presents for recheck injury to left foot from fall on 04/23/24 has red round discoloration to top of left foot that her daughter is concerned about her right great toe is still red and swollen but she denies any pain and the blister is healed c/o right shoulder pain that she says is arthritis wants to know if she needs to have any labs drawn injury to left foot from fall on 04/23/24was seen in [place] on 04/25/24she had a fall from her back porch that has been closed in as an add on and she lost balance and fell on the concrete floor, sustained injury to left foot, xray obtained and was informed fx at an angle left great toe had a blood blister with laceration to top of toe and bruising to all toes she denies any pain to toes or foot, she has a walking boot/shoe that she is able to walk around with pt has significant PMH of DM, PVD. Radha Sanchez, DO [address] [place] [address], [phone], [facility] 05/18/2024 13:19:11 08/18/2024 text/html DiabetesReported by PatientHPIFor control, patient reportsusually poorly controlled,home blood sugar range high, andhome blood sugar range low (below 70). For associated symptoms, patient reportssweatsbut reportsno dizzinessandno headaches. For compliance, patient reportscompliant with medications,compliant with follow-up visits, andcompliant with home glucose monitoring. For self care, patient reportsmonitoring glucose daily,seeing eye doctor regularly, andchecking feet regularly.ROS as noted in the HPI Pt presents for recheck of chronic illness, 4 months DM, HTN, HLD. A1c 9.9 on 05/18/24Using GCM, average 296She admits she does not follow a DM diet. Using the meals on wheels, they have dessert that she eats often. Getting 2 meals per day, and then also snacks.not taking Glimepiride and Trulicity, only taking lantus, she thinks at 55u. Pt denies dizziness, excessive sweating, or headaches. right shoulder pain, fell a few times. has been seen since last fall pt admits she does have some depression per daughter, pt is not taking any medication besides insulin. states Dr. Sanchez took pt off medication a few months ago and wasn't sure when to re start would like an order for a new cane, needing one with bigger base to aid with ambulation.using her walker in the house. Radha Sanchez, [address] [place] [address], [phone], [facility] 08/24/2024 15:16:05 09/16/2024 text/html Pt here for f/up of DM after labs were done on 08/18/24, which included Ha1C, CBC, TSH, CMP, Lipid Panel, Albumin random urine w/creatinine.A1c was 10.9. Pt has been working on getting glucose lower.running high still at times. 7 day average is around 250-300. Pt's daughter states that the patient is starting to have some problems with memory, and would like to discuss this. Pt fell several months ago and continues to c/o Right shoulder pain, and would like to discuss an injection. Radha HollidayDO hernan [address] [place] [address], [phone], [facility] 09/16/2024 13:59:18 12/15/2024 text/html ROS as noted in the HPI Pt presents for recheck 3 months cpl weeks feeling bad and very tired/weak. Daughter thought her potassium or electrolytes were off but she is feeling much better now. Her left knee is giving her problems and makes her balance off She is still having right shoulder pain after her fall on concrete back in April 2024wanting to know if can get a joint injection to the left shoulder today Her blood sugar avg per CGM is 207 for 7 days, for 14 days, 222 for 30 days and 217 for 90 days she remains at home living along, but with family watching her close and live close by. she does not drive. family helps with meds, meals, transportation, cleaning house. Radha HolldiayDO hernan [address] [place] [address], [phone], [facility] 12/16/2024 08:30:02 03/30/2025 text/html ROS as noted in the HPI Pt presents for toenail problem and CCA visit She has her left great toenail that she has been bothering her. Her daughter tried to cut it back some but did not feel comfortable doing much with itShe has had the nail removed previously , 11/19/23. Radha HollidayDO hernan [address] [place] [address], [phone], [facility], Yari. 03/31/2025 08:14:32 OBGyn Episode No OBEpisode recorded.
--- OUTSIDE RECORDS SUMMARY | 2025-06-05 14:15 | XMS_ITS | Patient Health Record ---
Author Organization [facility] Address [address] [place] [address] Care Team Providers Care Director Financial Planning Name Role Phone Yrn Daniels Primary Care Provider Toney Vigil [phone] Reason For Referral No Information Plan Of Treatment No Information Insurance Providers Payer Name Payer Address Payer Phone Subscriber Number Group Number Insured Name Patient Relationship to Insured Coverage Start Date Coverage End Date [employer] - Out of Network [address] [address] [place] [phone] [id number] OJ SUÁREZ Self - patient is the insured
--- NOTE | 2025-06-05 14:22 | W.ED.EXTPRO ---
HPI - Extremity Problem General: Chief complaint: Nausea/Vomiting/Diarrhea Stated complaint: n/v Time Seen by Provider: 06/05/25 14:08 Source: patient and EMS Mode of arrival: EMS Limitations: no limitations History of Present Illness: 85-year-old female states that she been having nausea and vomiting since yesterday. States she has had multiple episodes of vomiting. She did receive fluids and Zofran and route. Had some slight improvement she denies any abdominal pain denies any fevers denies any headache. She denies any worse improved factors. Related Data Home Medications ?Medication ?Instructions ?Recorded ?Confirmed atorvastatin 40 mg tablet 40 mg PO DAILY 03/18/21 06/05/25 insulin glargine 100 unit/mL 65 unit SUBCUT BID 03/18/21 06/05/25 subcutaneous solution (Lantus U-100 Insulin) donepezil 5 mg tablet 5 mg PO QAM 06/05/25 06/05/25 lisinopril 20 mg tablet 20 mg PO DAILY 06/05/25 06/05/25 Previous Rx's ?Medication ?Instructions ?Recorded left knee [employer] #1 ea 01/08/24 ondansetron 4 mg disintegrating 4 mg PO Q6H PRN nausea and 06/05/25 tablet vomiting #14 tabs Allergies Allergy/AdvReac Type Severity Reaction Status Date / Time codeine Allergy Mild ADR-Nausea Verified 06/07/24 13:28 Review of Systems GI: Reports: nausea and vomiting [facility] ED PFSH: Social History Smoking and tobacco/nicotine status: never used tobacco/nicotine Physical Exam Const: COMMON NORMALS: patient oriented x3 HENMT: COMMON NORMALS: normocephalic and atraumatic HEAD & SCALP: normocephalic and atraumatic Eye: COMMON NORMALS: Equal, round and reactive pupils present and EOMs intact bilaterally PUPIL: Yes Equal, round and reactive pupils present Neck/C-Spine: COMMON NORMALS: full ROM and supple Chest: COMMONS NORMALS: normal inspection of the chest and normal palpation of entire chest wall Resp: COMMON NORMALS: normal respiratory effort, No retractions, No use of accessory muscles and clear to auscultation bilaterally AUSCULTATION: clear to auscultation bilaterally Cardio: COMMON NORMALS: regular rate, regular rhythm and No murmurs present (Cardio) RATE: regular rate RHYTHM: regular rhythm GI: COMMON NORMALS: Normal to inspection, nondistended, normoactive bowel sounds present, Soft to palpation, non-tender and no masses PALPATION: Yes Soft to palpation Extremity: COMMON NORMALS: normal to inspection and full ROM Neuro: COMMON NORMALS: patient oriented x3, moves all extremities and no focal motor deficits Psych: COMMON NORMALS: mental status grossly normal, Normal thought process present and cooperative THOUGHT PROCESS: Normal thought process present Skin: COMMON NORMALS: no rashes or lesions noted and no wounds GENERAL SKIN EXAM: no rashes or lesions noted Course Vital Signs: Vital signs: Vital Signs Temperature 97.7 F 06/05/25 14:13 Pulse Rate 85 06/05/25 15:47 Respiratory Rate 17 06/05/25 14:13 Blood Pressure 123/58 06/05/25 16:31 Pulse Oximetry 96 06/05/25 16:31 Oxygen Delivery Me thod Room Air 06/05/25 14:13 MDM - Extremity (Nontraumatic) Medical Decision Making Patient presents with nausea vomiting. Differential includes gastritis, bowel obstruction. Patient CT scan here I did review showed enteritis no signs of small bowel obstruction or acute surgical abdomen. Patient's blood work here shows no significant abnormalities white count is normal no signs of infection. Patient felt much improved here after nausea meds patient was able to tolerate p.o. Patient is requesting discharge she would like to go home I feel she is stable for discharge at this point. Will prescribe her Zofran for home as needed. I did review labs and imaging with patient she has follow-up with PCP in 3 to 5 days return if worsening she understands and agrees to plan. Medical Records I reviewed the patient's medical records. Lab Data 06/05/25 14:26 06/05/25 14:26 Radiology Impressions Abdomen/Pelvis CT 06/05/25 14:12 IMPRESSION: 1. Segmental wall thickening involving the proximal small bowel of uncertain etiology. Considerations would include acute enteritis, celiac disease. 2. Cholelithiasis 3. Sigmoid diverticulosis Laboratory Results WBC 8.68 10^3/uL (3.29-11.43) 06/05/25 14:26 RBC 4.47 10^6/uL (3.85-5.65) 06/05/25 14:26 Hgb 12.50 g/dL (11.27-16.99) 06/05/25 14: Hct 36.5 % (36-47) 06/05/25 14: MCV 81.7 fl (85-98) L 06/05/25 14: MCH 28.0 pg (27-33) 06/05/25 14: MCHC 34.2 g/dL (30-55) 06/05/25 14: RDW 12.6 % (12.1-15.1) 06/05/25 14: Plt Count 285 10^3/cmm (157-399) 06/05/25 14: MPV 9.8 fL (7.4-10.4) 06/05/25 14: Neut % (Auto) 77.9 % 06/05/25 14: Lymph % (Auto) 11.5 % 06/05/25 14: Patrick % (Auto) 9.0 % 06/05/25 14: Eos % (Auto) 0.6 % 06/05/25 14:26 Baso % (Auto) 0.5 % 06/05/25 14: Neut # (Auto) 6.77 10^3/uL (1.8-7.7) 06/05/25 14: Lymph # (Auto) 1.0 10^3/uL (0.8-4.8) 06/05/25 14: Patrick # (Auto) 0.8 10^3/uL (0.2-0.9) 06/05/25 14: Eos # (Auto) 0.1 10^3/uL (0.0-0.8) 06/05/25 14: Baso # (Auto) 0.0 10^3/uL (0.0-0.1) 06/05/25 14: Nucleated RBC % (auto) 0 % 06/05/25 14: Nucleated RBCs # 0.0 /100WBC 06/05/25 14:26 Sodium 134 mmol/L (136-145) L 06/05/25 14: Potassium 4.0 mmol/L (3.5-5.1) 06/05/25 14: Chloride 98 mmol/L (98-107) 06/05/25 14:26 Carbon Dioxide 23 mmol/L (22-29) 06/05/25 14:26 Anion Gap 17.0 (5-19) 06/05/25 14:26 BUN 33 mg/dL (8-23) H 06/05/25 14:26 Creatinine 1.1 mg/dL (0.5-0.9) H 06/05/25 14:26 GFR Calculation Not Reportable 06/05/25 14:26 Glucose 239 mg/dL (65-115) H 06/05/25 14:26 Calculated Osmolality 293 mOsm/kg (285-295) 06/05/25 14:26 Calcium 10.4 mg/dL (8.5-10.5) 06/05/25 14: Total Bilirubin 0.7 mg/dL (0.15-1.2) 06/05/25 14:26 AST 18 U/L (0-32) 06/05/25 14: ALT 16 U/L (0-33) 06/05/25 14:26 Alkaline Phosphatase 68 U/L (35-105) 06/05/25 14:26 Total Protein 7.9 g/dL (6.6-8.7) 06/05/25 14:26 Albumin 4.3 g/dL (3.5-5.2) 06/05/25 14:26 Globulin 3.6 g/dL (1.3-4.6) 06/05/25 14:26 Lipase 146 U/L (13-60) H 06/05/25 14:26 Urine Color Yellow (Yellow) 06/05/25 14:48 Urine Appearance Turbid (CLEAR) A 06/05/25 14:48 Urine pH 8.5 (5-7) A 06/05/25 14:48 Ur Specific Downs 1.017 (1.005-1.030) 06/05/25 14:48 Urine Protein 1+ (Negative) A 06/05/25 14:48 Urine Glucose (UA) Trace (Normal) H 06/05/25 14:48 Urine Ketones 1+ (Negative) H 06/05/25 14:48 Urine Blood Negative (Negative) 06/05/25 14:48 Urine Nitrate Negative (Negative) 06/05/25 14:48 Urine Bilirubin Negative (Negative) 06/05/25 14:48 Urine Urobilinogen 1.0 mg/dL (Negative) 06/05/25 14:48 Ur Leukocyte Esterase Negative (Negative) 06/05/25 14:48 Urine RBC 0-2 /hpf (0-2) 06/05/25 14:48 Urine WBC 0-5 /hpf (0-5) 06/05/25 14:48 Ur Squamous Epith Cells 0-5 /hpf (0-5) 06/05/25 14:48 Amorphous Sediment 2+ /hpf 06/05/25 14:48 Urine Bacteria None seen /hpf (NONE) 06/05/25 14:48 Hyaline Casts 4.95 /lpf 06/05/25 14:48 All radiology interpretation(s) finalized by discharge Discharge Plan Discharge Patient Disposition: Home Clinical Impression: Vomiting Qualifiers: Vomiting type: unspecified Nausea presence: with nausea Qualified Code(s): R11.2 - Nausea with vomiting, unspecified Condition: Stable Prescriptions: New ondansetron 4 mg tablet,disintegrating 4 mg PO Q6H PRN (Reason: nausea and vomiting) Qty: 14 0RF No Action (DME) left knee [employer] See Rx Instructions .Route .MEDSUPPLY Qty: 1 0RF Rx Instructions: As directed atorvastatin 40 mg tablet 40 mg PO DAILY insulin glargine [Lantus U-100 Insulin] 100 unit/mL solution 65 unit SUBCUT BID donepezil 5 mg tablet 5 mg PO QAM lisinopril 20 mg tablet 20 mg PO DAILY Discharge Orders: Discharge ED (Routine); Ordered 06/05/25 Ordered By: Jerry Brandon Referrals: Toan Espinoza DO [Primary Care Provider, [facility]] - 4-7 days Discharge Diet: Advance as tolerated Discharge Activity: Resume usual activity Patient Instructions: Acute Nausea and Vomiting (ED) Print Language: Welsh Coding Level of Care Code ED Cell Biology Scientist for Aliyah Peter
[2025-06-05] MEDS: metoclopramide 5 mg/mL SDV 2 mL IVP (14:29)
[2025-06-05 14:30] LABS: Hematocrit 36.5 % (36-47); Hemoglobin 12.50 g/dL (11.27-16.99); Mean Corpuscular HGB Conc 34.2 g/dL (30-55); Mean Corpuscular Hemoglobin 28.0 pg (27-33); Mean Corpuscular Volume 81.7 fl (85-98); Nucleated Red Blood Cells % 0 %; Platelet Count 285 10^3/cmm (157-399); Red Blood Count 4.47 10^6/uL (3.85-5.65); White Blood Count 8.68 10^3/uL (3.29-11.43)
[2025-06-05] MEDS: morphine 4 mg/mL SDV 1 mL IVP (14:44)
[2025-06-05 14:48] VITALS: BP 184/68; PULSE 71; O2SAT 100
[2025-06-05 14:54] LABS: Glucose Urine UA Trace (Normal); Nitrate Urine Negative (Negative); Specific Gravity, Urine 1.017 (1.005-1.030)
[2025-06-05 14:55] LABS: Alanine Aminotransferase 16 U/L (0-33); Albumin Level 4.3 g/dL (3.5-5.2); Alkaline Phosphatase 68 U/L (35-105); Anion Gap 17.0 (5-19); Aspartate Amino Transferase 18 U/L (0-32); Blood Urea Nitrogen 33 mg/dL (8-23); Calcium 10.4 mg/dL (8.5-10.5); Carbon Dioxide 23 mmol/L (22-29); Chloride 98 mmol/L (98-107); Globulin 3.6 g/dL (1.3-4.6); Glucose 239 mg/dL (65-115); Lipase 146 U/L (13-60); Osmolality Calculated 293 mOsm/kg (285-295); Potassium 4.0 mmol/L (3.5-5.1); Sodium 134 mmol/L (136-145); Total Protein 7.9 g/dL (6.6-8.7)
[2025-06-05 14:59] LABS: Add Urine Microscopic? YES
[2025-06-05 15:08] LABS: UA Slide Review UA Slide Review Perf
[2025-06-05] MEDS: LORazepam 2 mg/mL INJ 1 mL 0.5 MG IVP (15:15)
[2025-06-05] MEDS: iohexol 350 mg/mL 500 mL Btl (per mL) IV (15:22)
[2025-06-05 15:47] VITALS: PULSE 85; O2SAT 89
--- NOTE | 2025-06-05 16:01 | PC.PHAR ---
Shanean states pt did not get her shot this morning so she thinks pt last took medications yesterday and nothing today. 06/05/25
[2025-06-05 16:31] VITALS: BP 123/58; O2SAT 96
[2025-06-05 17:11] VITALS: BP 147/73; PULSE 73; O2SAT 94
== END 2025-06-05 17:43 | disposition home or self-care (01) ==
PROVIDERS: Emergency Provider Emergency Medicine; PCP Electrodiagnostic Medicine
DX: R11.2 Nausea with vomiting, unspecified (principal); Z79.4 Long term (current) use of insulin
CPT/HCPCS: 74177; 80053; 81001; 83690; 85025; 96374; 96375; 99285; J2060; J2270; J2765; J7030